=== PATIENT | male | born 1950 | race Caucasian/White ===

== ENCOUNTER 2025-03-14 14:42 | Emergency (ER) | payer MEDICARE, SELFPAY ==
--- OUTSIDE RECORDS SUMMARY | 2025-03-14 14:46 | XMS_ITS | Encounter Summary ---
Author Organization [facility] Address [address] [place] [address] Care Team Providers Care Detective And Intelligence Analyst Name Role Phone Margareth Hernández MD Primary Care Provider Augusta Donaldson AUTOMOBILE ENGINE ASSEMBLER Unavailable Unavaila ble Jason Moon DO Unavailable Encounter Details Date Type Department Care Team (Late st Contact Info) Description 09/13/[address] [phone] Margareth Hernández MD [facility] [address] [place] [address] Social History Tobacco Use Types Packs/Day Years Used Date Smoking Tobacco: Every Day Cigarettes Smokeless Tobacco: Never Alcohol Use Standard Drinks/Week Comments No 0 (1 standard drink = 0.6 oz pur e alcohol) Sex and Gender Information Value Date Recorded Sex Assigned at Not on file Legal Sex Male 9:21 AM CDT Gender Identity Not on file Sexual Orientation Not on file documented as of this encounter Plan of Treatment Not on file documented as of this encounter Visit Diagnoses Not on filedocumented in this encounter Care Teams Detective And Intelligence Analyst Relationship Specialty Start Date End Date Margareth Hernández MD [facility] [address] [place] [address] PCP - General Otolaryngology 09/13/18 Augusta Donaldson, DEE AUTOMOBILE ENGINE ASSEMBLER 09/03/24 [place] [address] Home Infusion Following Provider 09/03/24 documented as of this encounter
--- OUTSIDE RECORDS SUMMARY | 2025-03-14 14:46 | XMS_ITS ---
Author Organization [facility] Address [address] [place] [address] Care Team Providers Care Long Term Care Phlebotomist Name Role Phone Margareth Hernández MD Primary Care Provider [phone] Augusta Donaldson LPN Unavailable Unavaila ble Jason Moon DO Unavailable Enteral Status:Enrolled (Active) Start date:07/22/2024 Enrollment date:07/23/2024 Linked medications:Nutritional Supplements (Active) Related program episode:Home Infusion (Active) Case Team Name Relationship Phone Augusta Donaldson LPN HAND ALTERATIONS SEAMSTRESS Continued Care and Services Coordination
--- OUTSIDE RECORDS SUMMARY | 2025-03-14 14:46 | XMS_ITS ---
Author Organization [facility] Address [address] [place] [address] Care Team Providers Care Gps Navigation Installer Name Role Phone Margareth Hernández MD Primary Care Provider Augusta Donaldson LPN Unavailable Unavaila ble Jason Moon DO Unavailable Home Infusion Status:Enrolled (Active) Start date:07/22/2024 Enrollment date:07/23/2024 Related service episodes:Enteral (Active) Case Team Name Relationship Phone Augusta Donaldson LPN BLOOD DONOR RECRUITER Continued Care and Services Coordination
--- OUTSIDE RECORDS SUMMARY | 2025-03-14 14:46 | XMS_ITS | Clinical Summary ---
Author Organization [facility] Address [address] [place] [address] Care Team Providers Care Cdl Instructor Name Role Phone Margareth Hernández MD Primary Care Provider Augusta Donaldson GOVERNMENT RELATIONS MANAGER Unavailable Unavaila ble Jason Moon DO Unavailable Allergies No known active allergies Medications HYDROcodone-acet aminophen 7.5-325 MG/15ML solutionIndicati ons:Cancer of base of tongue (H) Take 10 mLs by mouth every 4 hours as needed for pain (moderate to severe) 200 mL 09/02/2018 Active multivitamin, therapeutic with minerals (THERA-VIT-M) TABS tablet Take 1 tablet by mouth daily Active Berwyn-3 Fatty Acids (FISH OIL) 1200 MG capsule Take 1,200 mg by mouth daily Active omeprazole (PRILOSEC OTC) 20 MG EC tablet Take 20 mg by mouth daily Active loratadine (CLARITIN) 10 MG tablet Take 10 mg by mouth daily Active guaiFENesin (ROBITUSSIN) 20 mg/mL SOLN solution Take 10 mLs by mouth every 4 hours as needed for cough Active Boost VHC Very VanillaIndicatio ns:Oral hemorrhage Take 237 mLs by mouth 4 times daily. Infuse Orally - 4 cartons per day. 16196 mL 11 02/16/2025 9:25 AM CDT 10/18/2024 10/18/20 25 Active Active Problems Problem Noted Date Diagnosed Date Oral hemorrhage 09/13/2018 Encounters Date Type Department Care Team Description 03/14/2025 Home Infusion [facility] [address] [place] [phone] Augusta Donaldson LPN 12/29/2024 Home Infusion [facility] [address] [place] [address] [phone] Augusta Donaldson LPN from Last 3 Months Social History Tobacco Use Types Packs/Day Years Used Date Smoking Tobacco: Every Day Cigarettes Smokeless Tobacco: Never Alcohol Use Standard Drinks/Week Comments No 0 (1 standard drink = 0.6 oz pur e alcohol) Adolescent Education Answer Date Record ed Getting School Help Needed Not on file 08/08 Sex and Gender Information Value Date Recorded Sex Assigned at Not on file Legal Sex Male 9:21 AM CDT Gender Identity Not on file Sexual Orientation Not on file Last Filed Vital Signs Vital Sign Reading Time Taken Comments Blood Pressure 127/76 09/09/2019 10:26 AM CDT Pulse 69 09/09/2019 10:26 AM CDT Temperature 36.8 C (98.2 F) 09/09/2019 10:26 AM CDT Respiratory Rate 16 09/09/2019 10:26 AM CDT Oxygen Saturation 97% 09/09/2019 10:26 AM CDT Inhaled Oxygen Concentration - - Weight 67.3 kg (148 lb 4.8 oz) 09/09/2019 9:21 A M CDT Height 175.3 cm (5' 9) 09/09/2019 9:21 AM CDT Body Mass Index 21.9 09/09/2019 9:21 AM CDT Plan of Treatment Not on file Insurance BCBS OUT OF STATE [employer] MEDICARE ADVANTAGE MEDICARE Advance Directives For more information, please contact: [phone] * Full Code (Latest Code Status on File) Date Activated Date Inactivated Comments 09/14/2018 7:46 AM 09/09/2019 9:00 AM Question Answer Comments Code status determined by: Discussion with kristina nt/legal decision maker * Full Code Date Activated Date Inactivated Comments 09/13/2018 3:21 PM 09/14/2018 7:46 AM Question Answer Comments Code status determined by: Discussion with kristina nt/legal decision maker Care Teams Cdl Instructor Relationship Specialty Start Date End Date Margareth Hernández MD [facility] [place] [address] [place] [address] PCP - General Otolaryngology 09/13/18 Augusta Donaldson, GOVERNMENT RELATIONS MANAGER GOVERNMENT RELATIONS MANAGER 09/03/24 Jason Moon DO [facility] [place] [address] Home Infusion Following Provider 09/03/24
--- OUTSIDE RECORDS SUMMARY | 2025-03-14 14:46 | XMS_ITS | Encounter Summary ---
Author Organization [facility] Address [address] [place] [address] Care Team Providers Care Transferrer Name Role Phone Margareth Hernández MD Primary Care Provider Augusta Donaldson NEUROSURGICAL PHYSICIAN ASSISTANT Unavailable Unavaila ble Jason Moon DO Unavailable Reason for Visit * Reason Onset Date Comments Appointment 08/30/2019 called, left mes sandra for patient to call [phone] to schedule an appt with IR @ [facility] Encounter Details Date Type Department Care Team (Late st Contact Info) Description 08/30/2019 Telephone [facility] [address] [place] [address] Liyah Ayala, RN Appointment (called, left message for patient to call [phone] to schedule an appt with IR @ [facility]) Social History Tobacco Use Types Packs/Day Years [...] on filedocumented in this encounter Care Teams Transferrer Relationship Specialty Start Date End Date Margareth Hernández MD [facility] [place] [address] [place] [address] PCP - General Otolaryngology 09/13/18 Augusta Donaldson, NEUROSURGICAL PHYSICIAN ASSISTANT NEUROSURGICAL PHYSICIAN ASSISTANT 09/03/24 Jason Moon DO [place] [address] Home Infusion Following Provider 09/03/24 documented as of this encounter
--- OUTSIDE RECORDS SUMMARY | 2025-03-14 14:46 | XMS_ITS | Encounter Summary ---
Author Organization [facility] Address [address] [place] [address]. [place] [address] Care Team Providers Care Grill Prep Cook Name Role Phone Margareth Hernández MD Primary Care Provider Augusta Donaldson COOK NIGHT Unavailable Unavaila Jason Heath DO Unavailable Encounter Details Date Type Department Care Team (Late st Contact Info) Description 03/14/2025 Home Infusion [facility] [address] [place] [phone] Augusta Donaldson, COOK NIGHT Social History Tobacco Use Types Packs/Day Years [...] on filedocumented in this encounter Care Teams Grill Prep Cook Relationship Specialty Start Date End Date Margareth Hernández MD [facility] [place] [address] [place] [address] [place] [address] PCP - General Otolaryngology 09/13/18 Augusta Donaldson, COOK NIGHT COOK NIGHT 09/03/24 Jason Moon DO [address] [place] [address] Home Infusion Following Provider 09/03/24 documented as of this encounter
--- OUTSIDE RECORDS SUMMARY | 2025-03-14 14:46 | XMS_ITS | Clinical Summary ---
Author Organization [facility] Address [address] [place] [address] Care Team Providers Care Home Health Administrator Name Role Phone Kathi Moonkajal MAC Primary Care Provider [phone] Allergies No known active allergies Medications Multivits,Ca,Minera ls-Iron-FA (THERA M PLUS, FERROUS FUMARAT,) 9 mg iron-400 mcg tablet Take 1 Tab by mouth. Active omeprazole (PRILOSEC) 20 mg Delayed-Release capsule Take 1 capsule by mouth once daily before a meal. 0 9 Active levocetirizine (Xyzal) 5 mg tab tablet Take 1 Tablet (5 mg) by mouth once daily in the evening. 0 2 Active atorvastatin (LIPITOR) 20 mg tabletIndications:H yperlipidemia, unspecified hyperlipidemia type Take 1 Tablet (20 mg) by mouth at bedtime. 90 Tablet 3 4 Active guaiFENesin 100 mg/5 mL liquidIndications:O ropharyngeal cancer (HC) Take 5 mL (100 mg) by mouth once daily in the morning. 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 Had chemotherapy and radiation with success. Encounters Date Type Department Care Team Description 03/14/2025 Telephone [facility] [address] [place] [address] Jason Moon, Concerns from Last 3 Months Immunizations Immunization Administration Dates Next Due COVID-19 VACCINE SPIKEVAX (M ODERNA 50MCG/0.5ML) 12YO+ PFS 08/11/2024 COVID-19 vaccine (Moderna 10 0mcg/0.5mL) PF, MDV 10/29/2021,04/10/2021,03/13/2021 Influenza, High-dose Quadriv alent Inactivated 08/05/2023,09/22/2020 Influenza, IIV3 (Age 6-35 mos) 08/22/2016 Influenza, IIV3 (Age >=3 years) 08/14/2017 Influenza, IIV4 (=>6mos) MDV 09/22/2019,08/26/20 18 Influenza, Inactivated AIIV4 (Age 65+ Years) Preserv Free 09/10/2022,07/20/2021 Influenza, Inactivated IIV3 (Age 65+ Years) Preserv Free 08/11/2024 Pneumococcal Conj 20-valent (Prevnar 20) 023 RSV, Bivalent Vaccine Recons tituted (Abrysvo 120MCG/0.5mL) 10/23/2023 Tdap 09/10/2022,04/25/2008 Family History Medical History Relation Name Comments Atrial fibrillation Brother Cancer Maternal Uncle rectum; was m ore on the surface like a skin cancer around the rectal area Atrial fibrillation Sister Cancer-colon No Family History Relation Name Status Comments Brother Maternal Uncle Sister Social History Tobacco Use Types Packs/Day Years Used Date Smoking Tobacco: Every Day Cigarettes 0.5 66.6 Started: 08/08/1959 Smokeless Tobacco: Never Tobacco Cessation:Ready to Q uit: No; Counseling Given: Yes Alcohol Use Standard Drinks/Week Comments Not Currently 0 (1 standard drink = 0.6 oz pur e alcohol) PHQ-2 Answer Date Recorded PHQ-2 TOTAL SCORE 0 08/11/2024 Social Connections Answer Date Recorded Do you often feel lonely or isolated from those around you? 0 08/11/2024 Financial Resource Strain Answer Date R ecorded Difficulty of Paying Living Expenses 3 08/11/2024 Difficulty of Paying Living Expenses Not on file 08/11/2024 Food Insecurity Answer Date Recorded Do you worry your food will run out before you are able to buy more? 1 08/11/2024 Transportation Needs Answer Date Record ed Does lack of transportation keep you from medica l appointments? 1 08/11/2024 Does lack of transportation keep you from work, meetings or getting things that you need? 1 08/11/2024 Housing Stability Answer Date Recorded What is your housing situation today? 1 08/11/2024 Utilities Answer Date Recorded Do you have trouble paying f or utilities (for example, heat, electricity, water, phone)? 1 08/11/2024 Sex and Gender Information Value Date Recorded Sex Assigned at Not on file Legal Sex Male 8:01 PM CDT Gender Identity Not on file Sexual Orientation Not on file Obstetrics History Last Filed Vital Signs Vital Sign Reading Time Taken Comments Blood Pressure 126/78 08/11/2024 10:37 AM CDT re check Pulse 77 08/11/2024 10:37 AM CDT Temperature 37.2 C (98.9 F) 07/13/2021 12:53 PM CDT Respiratory Rate 16 06/22/2019 10:24 AM CDT Oxygen Saturation 96% 08/11/2024 9:50 AM CDT Inhaled Oxygen Concentration - - Weight 73.1 kg (161 lb 1.6 oz) 08/11/2024 9:50 A M CDT Height 172.7 cm (5' 8) 08/11/2024 9:50 AM CDT Body Mass Index 24.5 08/11/2024 9:50 AM CDT Plan of Treatment Upcoming Encounters Date Type Department Care Team (Late st Contact Info) Description 03/21/2025 12:25 PM CDT Office Visit [facility] [address] [place] [address] Jason Moon DO [address] [place] [address] Health Maintenance Due Date Last Done Comments Zoster (shingles) series for age 50+ (1 of 2) 1999 COVID-19 vaccine series (2023- season) 2025 08/11/2024, 09/10/2022, 10/29/2021, Additional history exists Low Dose CT (for lung CA) ag e 50-80 06/21/2025 06/21/2024 BMI (ht and wt on same day) for age 18+ 08/11/2025 08/11/2024, 08/08/2023, 07/10/2022, Additional history exists Depression screening for age 12+ 08/12/2025 08/12/2024, 08/11/2024, 08/08/2023, Additional history exists Medicare Wellness for age 65+ 08/12/2025, 08/08/2023, 07/10/2022 Fecal testing sDNA-FIT (Witten guard) for age 45-75 03/11/2026 03/11/2023, 08/08/2021, 08/07/2021 Lipids for age 45-75 08/11/2029 08/11/2024, 08/08/2023, 07/10/2022, Additional history exists Tetanus booster 09/10/2032 09/10/2022, 04/25/2008 Hepatitis C screening for ag e 18-79 Completed 07/20/2021 Tdap Completed 09/10/2022, 04/25/2008 Pneumococcal series for age 50+ Completed RSV vaccine for adults or Completed 10/23/2023 Influenza Vaccine Completed 08/11/2024, , 07/20/2021, Additional history exists Procedures Procedure Name Priority Date/Time Associated Diagnosis Comments LIPID PANEL W REFLEX MEASURED LDL Routine 08/11/2024 10:56 AM CDT Hyperlipidemia, unspecified hyperlipidemia type CT CHEST SCREENING LOW DOSE WO CONTRAST Routine 06/21/2024 9:09 AM CDT Tobacco dependence Personal history of nicotine dependence SDNA-FIT EXTERNAL (COLOGUARD) Routine 03/11/2023 11:50 AM CDT Screening for colon cancer ANTI HCV Routine 07/20/2021 8:26 AM CDT Need for hepatitis C screening test from Last 3 Months or Most Recently Relevant to Health Maintenance Results * LIPID PANEL W REFLEX MEASURED LDL (08/11/2024 10:56 AM CDT) CHOLESTEROL, TOTAL 127 <200 mg/dL [facility] HDL CHOLESTEROL 48 > OR = 40 mg/dL [facility] TRIGLYCERIDES 56 <150 mg/dL [facility] LDL-CHOLESTEROL 65 mg/dL (calc) [facility] Comment: Reference range: <100 Desirable range <100 mg/dL for primary prevention; <70 mg/dL for patients with CHD or diabetic patients with > or = 2 CHD risk factors. LDL-C is now calculated using the Marv-Zaheer calculation, which is a validated novel method providing better accuracy than the Friedewald equation in the estimation of LDL-C. Marv SS et al. LUISITO. 2013;310(19): 9406-6584 (http://education.Appconomy/faq/AUW279) CHOL/HDLC RATIO 2.6 <5.0 (calc) [facility] NON HDL CHOLESTEROL 79 <130 mg/dL (calc) [facility] Comment: For patients with diabetes plus 1 major ASCVD risk factor, treating to a non-HDL-C goal of <100 mg/dL (LDL-C of <70 mg/dL) is considered a therapeutic option. Blood BLOOD SPECIMEN / Unknown 08/11/2024 10:56 AM CDT 08/11/2024 10:56 AM CDT us Jason Moon DO CHEMISTRY Final Result [facility] [address] [place] [address], [facility] [address] [place] [address] * CT CHEST SCREENING LOW DOSE WO CONTRAST (06/21/2024 9:09 AM CDT) Anatomical Region Laterality Modality Computed Tomogra phy Addenda Addendum by Mike Newton MD on 06/27/2024 10:10 PM CDT For Patients: As a result of the Cures Act, medical imaging exams and procedure reports are released immediately into your electronic medical record. You may view this report before your referring provider. If you have questions, please contact your health care provider. ADDENDUM ADDENDUM ADDENDUM Addendum: Based on a secondary overread leveraging technology deployed at [facility], a previously undocumented finding has been confirmed. There is a 4-5 mm pulmonary nodule in the left upper lobe of the lung, image 63 series 3 and image 77 series 7. A follow-up screening noncontrast chest CT is recommended in 12 months. Dictated by: Mike Newton MD @06/24/2024 1:28:05 PM / CRL:clarisa Impressions 06/22/2024 8:55 AM CDT Negative for lung cancer screening purposes. 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 RADIOLOGIST RECOMMENDATION: Continue annual screening with low-dose CT chest in 12 months. Dictated by: Mike Newton MD @06/21/2024 2:55:13 PM CRL:fred Please note that all CT scans at this facility use dose modulation, iterative reconstruction and/or weight-based dosing when appropriate to reduce radiation dose to as low as reasonably achievable. Narrative 06/22/2024 8:55 AM CDT For Patients: As a result of the Cures Act, medical imaging exams and procedure reports are released immediately into your electronic medical record. You may view this report before your referring provider. If you have questions, please contact your health care provider. CT CHEST SCREENING LOW-DOSE WITHOUT CONTRAST, 06/21/2024 INDICATION: Lung cancer screening. History of smoking. Tobacco dependence. High-risk patient with greater than 51-bvtc-yrpt smoking history. TECHNIQUE: Low-dose lung cancer screening noncontrast CT chest. Dose reduction techniques were used. COMPARISON: None. FINDINGS: NODULES: None. LUNGS AND PLEURA: Mild emphysematous-type changes. Minor fairly symmetric biapical fibrosis/pleural thickening. 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 Normal-caliber thoracic aorta. CORONARY ARTERY CALCIFICATION: Present. LIMITED UPPER ABDOMEN: Normal. MUSCULOSKELETAL: Degenerative disc disease identified within the mid to lower lumbar spine on the lateral travel counselor image). us Jason Moon DO CT Edited Result - Final * SDNA-FIT EXTERNAL (COLOGUARD) (03/11/2023 11:50 AM CDT) NONINV COLON CA DNA+OCC BLD SCRN STL-IMP Negative Negative 03/20/2023 2:58 AM CDT [facility] (CLIA #:[id number]) Comment: NEGATIVE TEST RESULT. A negative Cologuard result indicates a low likelihood that a colorectal cancer (CRC) or advanced adenoma (adenomatous polyps with more advanced pre-malignant features) is present. The chance that a person with a negative Cologuard test has a colorectal cancer is less than 1 in 1500 (negative predictive value >99.9%) or has an advanced adenoma is less than 5.3% (negative predictive value 94.7%). These data are based on a prospective cross-sectional study of 10,000 individuals at average risk for colorectal cancer who were screened with both Cologuard and colonoscopy. (Bev Gutierrez et al, N Engl J Med 2014;370(14):6630-6635) The normal value (reference range) for this assay is negative. COLOGUARD RE-SCREENING RECOMMENDATION: Periodic colorectal cancer screening is an important part of preventive healthcare for asymptomatic individuals at average risk for colorectal cancer. Following a negative Cologuard result, the [employer] Society and U.S. Multi-Society Task Force screening guidelines recommend a Cologuard re-screening interval of 3 years. References: [employer] Society Guideline for Colorectal Cancer Screening: https://www.cancer.org/cancer/dymxm-ltppss-iczkls/qlnkaerjc-zgzaxhuqt-rnqcbox/ac s-rec ommendations.html.; Cem DK, Geraldo CR, Jon SimsK, Colorectal Cancer Screening: Recommendations for Physicians and Patients from the U.S. Multi-Society Task Force on Colorectal Cancer Screening , Am J Gastroenterology 2017; 112:2515-6487. TEST DESCRIPTION: Composite algorithmic analysis of stool DNA-biomarkers with hemoglobin immunoassay. Quantitative values of individual biomarkers are not reportable and are not associated with individual biomarker result reference ranges. Cologuard is intended for colorectal cancer screening of adults of either sex, 45 years or older, who are at average-risk for colorectal cancer (CRC). Cologuard has been approved for use by the U.S. FDA. The performance of Cologuard was established in a cross sectional study of average-risk adults aged 50-84. Cologuard performance in patients ages 45 to 49 years was estimated by sub-group analysis of near-age groups. Colonoscopies performed for a positive result may find as the most clinically significant lesion: colorectal cancer [4.0%], advanced adenoma (including sessile serrated polyps greater than or equal to 1cm diameter) [20%] or non- advanced adenoma [31%]; or no colorectal neoplasia [45%]. These estimates are derived from a prospective cross-sectional screening study of 10,000 individuals at average risk for colorectal cancer who were screened with both Cologuard and colonoscopy. (Bev Akins al, N Engl J Med 2014;370(14):9594-5101.) Cologuard may produce a false negative or false positive result (no colorectal cancer or precancerous polyp present at colonoscopy follow up). A negative Cologuard test result does not guarantee the absence of CRC or advanced adenoma (pre-cancer). The current Cologuard screening interval is every 3 years. ([employer] [employer] Society and U.S. Multi-Society Task Force). Cologuard performance data in a 10,000 patient pivotal study using colonoscopy as the reference method can be accessed at the following location: www.[employer].Aunalytics/results. Additional description of the Cologuard test process, warnings and precautions can be found at www.Izoobleoguard.com. Stool specimen (specimen) (Rectum) 03/11/2023 11:50 AM CDT 03/12/2023 1:54 PM CDT us Meagan JENSEN URINE Final Resu lt [facility] (CLIA #:[id number]) [place] [address], * ANTI HCV (07/20/2021 8:26 AM CDT) HEPATITIS C ANTIBODY Non-React girish Non-React girish 07/20/2021 3:50 PM CDT [facility] Comment:Antibodies to HCV no t detected; does not exclude the possibility of exposure to HCV. Blood BLOOD SPECIMEN / Unknown Venipuncture / Unknown 07/20/2021 8:26 AM CDT 07/20/2021 8:28 AM CDT us Meagan JENSEN SEND OUTS Final Resu lt [facility] [address] [place] [address], from Last 3 Months or Most Recently Relevant to Health Maintenance Insurance [facility] MR Care Teams Home Health Administrator Relationship Specialty Start Date End Date Jason Moon DO [address] [place] [id number] PCP - General Family Practice 08/08/23
--- OUTSIDE RECORDS SUMMARY | 2025-03-14 14:46 | XMS_ITS | Encounter Summary ---
Author Organization [facility] Address [address] [place] [address]. [place] [address] Care Team Providers Care Bridge Maintainer Name Role Phone Margareth Hernández MD Primary Care Provider [phone] Augusta Donaldson POTATO CHIP COOKER MACHINE Unavailable Unavaila Jason Heath DO Unavailable Encounter Details Date Type Department Care Team (Late st Contact Info) Description 12/29/2024 Home Infusion [facility] [address] [place] [phone] Augusta Donaldson, POTATO CHIP COOKER MACHINE Social History Tobacco Use Types Packs/Day Years [...] on filedocumented in this encounter Care Teams Bridge Maintainer Relationship Specialty Start Date End Date Margareth Hernández MD [facility] [address] [address] [place] [address] PCP - General Otolaryngology 09/13/18 Augusta Donaldson, POTATO CHIP COOKER MACHINE POTATO CHIP COOKER MACHINE 09/03/24 Jason Moon DO [address] [place] [address] Home Infusion Following Provider 09/03/24 documented as of this encounter
[2025-03-14 14:50] VITALS: BP 121/68; PULSE 102; RESP 18; TEMP 37.1; O2SAT 94; BMI 23.6
--- NOTE | 2025-03-14 15:16 | CRLHL7_ITS ---
For Patients: As a result of the Century Cures Act, medical imaging exams and procedure reports are released immediately into your electronic medical record. You may view this report before your referring provider. If you have questions, please contact your health care provider. Indication: Constipation and hernia Technique: Volumetric multidetector CT images of the abdomen and pelvis were obtained after the administration of intravenous contrast. 76 cc Isovue 370 low osmolar intravenous contrast Comparison: None available. Findings: The lung bases are clear. The liver is mildly enlarged with minimal hypodensities somewhat too small to characterize. The portal vein is patent. The gallbladder is unremarkable without evidence of radiopaque calculus. There is no significant common biliary ductal dilatation or abrupt cut off. The spleen is normal in enhancement and size. The stomach and duodenum are grossly unremarkable. The pancreas is normal in enhancement without significant atrophy. The adrenal glands are unremarkable. Cystic changes of the kidneys are appreciated with otherwise preserved corticomedullary differentiation. There is moderate stool seen throughout the colon in the rectum with distal colonic diverticulosis. No evidence of obvious focal inflammatory changes. The appendix is unremarkable. Incidental note is made of a small nodule within the left retroperitoneum just lateral to the left psoas muscle measuring 7.5 millimeters. Otherwise, no obvious pathologic lymph nodes are appreciated within the mesentery, retroperitoneum or epigastrium. The aorta is nonaneurysmal. There is no significant atherosclerotic disease appreciated. There is moderate prostatic hypertrophy. There is no free fluid or free air. The anterior abdominal wall is intact without significant hernias. Bilateral fat containing inguinal hernias are appreciated. Minimal encroachment of the left inguinal canal by bowel without direct herniation. The lumbar vertebral body heights are grossly maintained with awco-xz-fwqmftuv degenerative disc disease with disc height loss and marginal osteophyte formation. There is moderate facet arthrosis. Impression: 1. Moderate to severe stool seen throughout the colon commensurate with constipation changes. Distal colonic diverticulosis without obvious inflammatory change. 2. Fat containing bilateral inguinal hernias with minimal encroachment by loops of small bowel but without direct herniation. Otherwise no obvious hernia is appreciated. Please note that all CT scans at this facility use dose modulation, iterative reconstruction, and/or weight-based dosing when appropriate to reduce radiation dose to as low as reasonably achievable. Dictated by Omer Hernández MD @ 03/14/2025 4:40:30 PM (Electronically Signed)
--- NOTE | 2025-03-14 15:17 | ED.WEAKNESS ---
HPI - Weakness General Chief complaint: Weakness Stated complaint: weakness in both legs Time Seen by Provider: 03/14/25 14:58 History of Present Illness HPI Narrative: This 74-year-old male comes in reporting generalized weakness over the past week or so. He states that he feels better when getting up in the morning but as the day progresses he has more difficulty with ambulating. He is able to get up and ambulate and now has been using a walker for assistance. He does not report any injury event but did have some strenuous activity the week before these symptoms began. He was cleaning out his garage and moving boxes of books and may have overused his lower extremities in this process. He does not describe any pain. 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 Since then he is only taking liquids for food and is using boost 3 or 4 times a day with good results. He states there is no change in this but at times he has some diarrhea and other times has some constipation. He reports currently having constipation symptoms and wonders if there is some hernia or some problem in his right lower quadrant contributing to this. He states that his about 5 years ago from cancer. Related Data Home Medications ?Medication ?Instructions ?Recorded ?Confirmed food supplemt, lactose-reduced ea PO 11/11/23 11/11/23 0.04 gram-1 kcal/mL oral liquid (Boost) Allergies Allergy/AdvReac Type Severity Reaction Status Date / Time No Known Drug Allergies Allergy Verified 03/14/25 15:53 Review of Systems Status of ROS: Reports: 10 or more systems reviewed and unremarkable except as noted in History and below Narrative: Constitutional: No fevers, no weight gain or loss. Eyes: No discharge. No vision changes. HENT: No congestion, no sore throat, no ear pain. Cardiovascular: No chest pain, no palpitations. Respiratory: No shortness of breath, no wheezes, no cough. Gastrointestinal: No abdominal pain, no vomiting, no diarrhea. Constipation symptoms as described above. Genitourinary: No dysuria, no hematuria. Musculoskeletal: Normal range of motion. Skin: No rashes, no pruritis. Neurological: No dizziness, sensory change, speech change. He reports some weakness in his legs that seems to increase as the day progresses. Endo/Heme/Allergies: No bruising or bleeding. No polydipsia. Pysch: no suicidality, no anxiety, no insomnia. All other systems reviewed and are negative. [facility] Social History Smoking Status: Current every day smoker What tobacco products do you use: cigarettes Exam Narrative: Exam Narrative: Constitutional: Well-developed, well-nourished, no acute distress. HEENT: Normocephalic, atraumatic. Neck: Normal range of motion. Nontender. Supple. Heart: Regular. No murmurs. Normal rate. Intact distal pulses. Lungs: Clear to auscultation. No chest discomfort. No wheezes, rhonchi, or rales. Abdomen: Normal bowel sounds. Nontender. No rebound tenderness. Genitalia: Deferred. Back: No midline tenderness. Normal range of motion. Extremities: Normal range of motion. No injury. Skin: Intact. No rash. Warm. No erythema or pallor. Neurologic: No altered sensation. No weakness. Alert and oriented. No facial asymmetry. Tongue is midline. Iqemas-of-jdgg is normal. No pronator drift. Advance Scout strength is equal bilaterally. Able to raise each leg from the bed. Psychiatric: No suicidality. No anxiety or depression. No insomnia. Nursing notes and vitals signs are reviewed. Const: Vital Signs, click to edit/add: Vital Signs - 24 hr 03/14/25 14:50 03/14/25 16:44 Temperature 98.7 F Pulse Rate [Pulse Oximeter] 102 H 77 Respiratory Rate 18 16 Blood Pressure [Ri ght Upper Arm] 121/68 128/67 Pulse Oximetry 94 95 Oxygen Delivery Me thod Room Air Room Air Course Vital Signs Vital signs: Initial Vital Signs Temperature 98.7 F 03/14/25 14:50 Temperature Source Temporal Artery Scan 03/14/25 14:50 Pulse Rate 102 H 03/14/25 14:50 Respiratory Rate 18 03/14/25 14:50 Blood Pressure 121/68 03/14/25 14:50 Blood Pressure Mean 85 03/14/25 14:50 Blood Pressure Position Sitting 03/14/25 14:50 Pulse Oximetry 94 03/14/25 14:50 Oxygen Delivery Method Room Air 03/14/25 14:50 Vital Signs Temperature 98.7 F 03/14/25 14:50 Pulse Rate 102 H 03/14/25 14:50 Respiratory Rate 18 03/14/25 14:50 Blood Pressure 121/68 03/14/25 14:50 Pulse Oximetry 94 03/14/25 14:50 Oxygen Delivery Method Room Air 03/14/25 14:50 Temperature 98.7 F 03/14/25 14:50 Pulse Rate 77 03/14/25 16:44 Respiratory Rate 16 03/14/25 16:44 Blood Pressure 128/67 03/14/25 16:44 Pulse Oximetry 95 03/14/25 16:44 Oxygen Delivery Method Room Air 03/14/25 16:44 MDM - Weakness MDM Narrative Medical decision making narrative: This patient comes in reporting constipation and some generalized weakness. He has able to get up and ambulate. He did do some exertional things prior to this that he is likely recovering from. I did obtain CT scan with IV contrast and lab results and CT imaging returned with reassuring findings. CT scan does show evidence of bilateral inguinal hernias that are really not consequential. He does have moderate to severe constipation. I did relay the various strategies for attending to constipation in the patient states that he will return home and use these more aggressively to get something happening. Lab Data Labs: Lab Results 03/14/25 03/14/25 Range/Units 15:30 15:32 WBC 7.69 (4.50-11.00) K/uL RBC 5.82 (4.30-5.90) m/uL Hgb 17.6 H (13.5-17.5) gm/dL Hct 51.5 (37.0-53.0) % MCV 89 (80-100) fL MCH 30 (26-34) pg MCHC 34 (32-36) gm/dL RDW Coeff of Jason 13.5 (11.5-15.5) % Plt Count 244 (140-440) K/uL Neut % (Auto) 72.8 H (42.0-72.0) % Lymph % (Auto) 12.1 L (20-44) % [place] % (Auto) 13.0 H (0.0-11.0) % Eos % (Auto) 0.7 (0.0-7.0) % Baso % (Auto) 0.4 (0.0-3.0) % Neut # (Auto) 5.60 (1.7-7.0) K/uL Lymph # (Auto) 0.90 (0.90-2.90) K/uL [place] # (Auto) 1.00 H (0.00-0.90) K/UL Eos # (Auto) 0.05 (0.00-0.50) K/uL Baso # (Auto) 0.03 (0.00-0.30) K/uL Abs Immat Gran (auto) 0.08 (0.00-0.30) K/uL Imm/Tot Granulo (auto) 1.0 % Sodium 142 (135-149) mmol/L Potassium 3.5 L (3.6-5.1) mmol/L Chloride 103 (96-114) mmol/L Carbon Dioxide 28 (20-32) mmol/L Anion Gap 11 (7-15) mEq/L BUN 28 (7-30) mg/dL Creatinine 1.1 (0.5-1.5) mg/dL Estimated Creat Clear 56.14 Estimated GFR 70 ml/min Glucose 109 (60-115) mg/dL Calcium 9.9 (8.4-10.6) mg/dL POC Creatinine 1.2 (0.6-1.3) mg/dl Discharge Plan Discharge Clinical Impression: Constipation Patient Disposition: Home, Self-Care Condition: Stable Additional Instructions: Use mddv-ygb-dsjxfit medicines to treat constipation as needed and directed. Increase activity as tolerated. Follow up with MD as scheduled or return if worsening. Prescriptions: No Action Boost 0.04 gram- 1 kcal/mL liquid PO Follow Up/Referrals: Provider,Not a Local [Non-Staff] - Stand Alone Forms: Online [facility] Info Instructions
--- OUTSIDE RECORDS SUMMARY | 2025-03-14 15:27 | XMS_ITS | Encounter Summary ---
Author Organization [facility] Address [address] [place] [address] Care Team Providers Care Log Handling Equipment Operator Name Role Phone Magrareth Hernández MD Primary Care Provider [phone] Augusta Donaldson SCALE SHOOTER Unavailable Unavaila ble Jason Moon DO Unavailable Encounter Details Date Type Department Care Team (Late st Contact Info) Description 09/13/[address] [phone] Margareth Hernández MD [facility] [address] [place] [place] [address] Social History Tobacco Use Types Packs/Day Years [...] on filedocumented in this encounter Care Teams Log Handling Equipment Operator Relationship Specialty Start Date End Date Margareth Hernández MD [facility] [address] [place] [address] PCP - General Otolaryngology 09/13/18 Augusta Donaldson, DEE SCALE SHOOTER 09/03/24 Jason [place] [address] Home Infusion Following Provider 09/03/24 documented as of this encounter
--- OUTSIDE RECORDS SUMMARY | 2025-03-14 15:27 | XMS_ITS | Clinical Summary ---
Author Organization [facility] Address [address] [place] [address] Care Team Providers Care Conference Concierge Name Role Phone Margareth Hernández MD Primary Care Provider Augusta Donaldson SPECIAL NEEDS BABYSITTER Unavailable Unavaila ble Jason Moon DO Unavailable Allergies No known active allergies Medications HYDROcodone-acet aminophen 7.5-325 MG/15ML solutionIndicati ons:Cancer of base of tongue (H) Take 10 mLs by mouth every 4 hours as needed for pain (moderate to severe) 200 mL 09/02/2018 Active multivitamin, therapeutic with minerals (THERA-VIT-M) TABS tablet Take 1 tablet by mouth daily Active [place]-3 Fatty Acids (FISH OIL) 1200 MG capsule [...] Infuse Orally - 4 cartons per day. [address] mL 11 02/16/2025 9:25 AM CDT 10/18/2024 10/18/20 25 Active Active Problems Problem Noted Date Diagnosed Date Oral hemorrhage 09/13/2018 Encounters Date Type Department Care Team Description 03/14/2025 Home Infusion [facility] [address] [place] [phone] Augusta Donaldson LPN 12/29/2024 Home Infusion [facility] [address] [place] [phone] Augusta Donaldson LPN from Last 3 Months [...] Advance Directives For more information, please contact: [phone] * Full Code (Latest Code Status on File) Date Activated Date Inactivated Comments 09/14/2018 7:46 AM 09/09/2019 9:00 AM Question Answer Comments Code status determined by: Discussion with kristina nt/legal decision maker * Full Code Date Activated Date Inactivated Comments 09/13/2018 3:21 PM 09/14/2018 7:46 AM Question Answer Comments Code status determined by: Discussion with kristina nt/legal decision maker Care Teams Conference Concierge Relationship Specialty Start Date End Date Margareth Hernández MD [facility] [place] [address] [place] [address] PCP - General Otolaryngology 09/13/18 Augusta Donaldson, SPECIAL NEEDS BABYSITTER SPECIAL NEEDS BABYSITTER 09/03/24 Jason Moon DO [facility] [place] [address] Home Infusion Following Provider 09/03/24
--- OUTSIDE RECORDS SUMMARY | 2025-03-14 15:27 | XMS_ITS ---
Author Organization [facility] Address [address] [place] [address] Care Team Providers Care Enterprise Systems Administrator Name Role Phone Margareth Hernández MD Primary Care Provider Augusta Donaldson LPN Unavailable Unavaila ble Jason Moon DO Unavailable Enteral Status:Enrolled (Active) Start date:07/22/2024 Enrollment date:07/23/2024 Linked medications:Nutritional Supplements (Active) Related program episode:Home Infusion (Active) Case Team Name Relationship Phone Augusta Donaldson LPN GUN STOCK MAKER Continued Care and Services Coordination
--- OUTSIDE RECORDS SUMMARY | 2025-03-14 15:27 | XMS_ITS ---
Author Organization [facility] Address [address] [place] [address] Care Team Providers Care Contribution Solicitor Name Role Phone Margareth Hernández MD Primary Care Provider Augusta Donaldson LPN Unavailable Unavaila ble Jason Moon DO Unavailable Home Infusion Status:Enrolled (Active) Start date:07/22/2024 Enrollment date:07/23/2024 Related service episodes:Enteral (Active) Case Team Name Relationship Phone Augusta Donaldson LPN NETWORKER Continued Care and Services Coordination
--- OUTSIDE RECORDS SUMMARY | 2025-03-14 15:28 | XMS_ITS | Encounter Summary ---
Author Organization [facility] Address [address] [place] [address]. [place] [address] Care Team Providers Care Field Crew Chief Name Role Phone Margareth Hernández MD Primary Care Provider Augusta Donaldson BOILERMAKER INDUSTRIAL BOILERS Unavailable Unavaila Jason Heath DO Unavailable Encounter Details Date Type Department Care Team (Late st Contact Info) Description 03/14/2025 Home Infusion [facility] [address] [place] [phone] Augusta Donaldson, BOILERMAKER INDUSTRIAL BOILERS Social History Tobacco Use Types Packs/Day Years [...] on filedocumented in this encounter Care Teams Field Crew Chief Relationship Specialty Start Date End Date Margareth Hernández MD [facility] [place] [address] [address] [place] [address] PCP - General Otolaryngology 09/13/18 Augusta Donaldson, BOILERMAKER INDUSTRIAL BOILERS BOILERMAKER INDUSTRIAL BOILERS 09/03/24 Jason Moon DO [address] [place] [address] Home Infusion Following Provider 09/03/24 documented as of this encounter
--- OUTSIDE RECORDS SUMMARY | 2025-03-14 15:28 | XMS_ITS | Encounter Summary ---
Author Organization [facility] Address [address] [place] [address]. [place] [address] Care Team Providers Care Chief Maintenance Supervisor Name Role Phone Margareth Hernández MD Primary Care Provider Augusta Donaldson POUNCING LATHE OPERATOR Unavailable Unavaila Jason Heath DO Unavailable Encounter Details Date Type Department Care Team (Late st Contact Info) Description 12/29/2024 Home Infusion [facility] [address] [place] [phone] Augusta Donaldson, POUNCING LATHE OPERATOR Social History Tobacco Use Types Packs/Day Years [...] on filedocumented in this encounter Care Teams Chief Maintenance Supervisor Relationship Specialty Start Date End Date Margareth Hernández MD [facility] [address] [address] [place] [address] PCP - General Otolaryngology 09/13/18 Augusta Donaldson, POUNCING LATHE OPERATOR POUNCING LATHE OPERATOR 09/03/24 Jason Moon DO [address] [place] [address] Home Infusion Following Provider 09/03/24 documented as of this encounter
--- OUTSIDE RECORDS SUMMARY | 2025-03-14 15:28 | XMS_ITS | Clinical Summary ---
Author Organization [facility] Address [address] [place] [address] Care Team Providers Care Inpatient Care Manager Rn Name Role Phone Kathi Moonkajal MAC Primary Care Provider [phone] Allergies No known active allergies Medications Multivits,Ca,Minera [...] Type Department Care Team Description 03/14[facility]20[facility] [address] [place] [address] Jason Moon, Concerns from Last 3 Months [...] Description 03/21/2025 12:25 PM CDT [facility] [address] [place] [address] Jason Moon DO [address] [place] [address] Health Maintenance Due Date Last Done Comments [...] 65+ 08/12/2025, 08/08/2023, 07/10/2022 Fecal testing sDNA-FIT ([place] guard) for age 45-75 03/11/2026 03/11/2023, 08/08/2021, [...] LDL-C. Marv SS et al. LUISITO. 2013;310(19): 7772-6028 (http://education.Photomedex/faq/WBT477) CHOL/HDLC RATIO 2.6 <5.0 (calc) [employer] Frank NON HDL CHOLESTEROL 79 <130 mg/dL (calc) [employer] Marie Comment: For patients with diabetes plus 1 major ASCVD risk factor, treating to a non-HDL-C goal of <100 mg/dL (LDL-C of <70 mg/dL) is considered a therapeutic option. Blood BLOOD SPECIMEN / Unknown 08/11/2024 10:56 AM CDT 08/11/2024 10:56 AM CDT us Jason Moon DO CHEMISTRY Final Result [facility] [address] [place] [address], [facility] [address] [place] [address] * CT CHEST SCREENING LOW DOSE WO [...] a secondary overread leveraging technology deployed at [facility], a previously undocumented finding has been [...] Tobacco dependence. High-risk patient with greater than 37-gmbu-vuza smoking history. TECHNIQUE: Low-dose lung cancer screening [...] to lower lumbar spine on the lateral crystallographer image). us Jason Moon DO CT Edited Result - Final * SDNA-FIT EXTERNAL (COLOGUARD) (03/11/2023 11:50 AM CDT) NONINV COLON CA DNA+OCC BLD SCRN STL-IMP Negative Negative 03/20/2023 2:58 AM CDT [facility] (CLIA #:[id number]) Comment: NEGATIVE TEST RESULT. A negative Cologuard [...] Gutierrez et al, N Engl J Med 2014;370(14):3870-6563) The normal value (reference range) for this assay is negative. COLOGUARD RE-SCREENING RECOMMENDATION: Periodic colorectal cancer screening is an important part of preventive healthcare for asymptomatic individuals at average risk for colorectal cancer. Following a negative Cologuard result, the [place] Cancer Society and U.S. Multi-Society Task Force screening guidelines recommend a Cologuard re-screening interval of 3 years. References: [place] Cancer Society Guideline for Colorectal Cancer Screening: https://www.cancer.org/cancer/zponl-vwciis-qdxxhp/szsxumlxq-qejziokeg-beuotyk/ac s-rec ommendations.html.; Cem DK, Geraldo CR, Jon SimsK, Colorectal Cancer Screening: Recommendations for Physicians and Patients from the U.S. Multi-Society Task Force on Colorectal Cancer Screening , Am J Gastroenterology 2017; 112:6398-8813. TEST DESCRIPTION: Composite algorithmic analysis of stool [...] (Bev Akins al, N Engl J Med 2014;370(14):0773-7574.) Cologuard may produce a false negative or false positive result (no colorectal cancer or precancerous polyp present at colonoscopy follow up). A negative Cologuard test result does not guarantee the absence of CRC or advanced adenoma (pre-cancer). The current Cologuard screening interval is every 3 years. ([place] Cancer Society and U.S. Multi-Society Task Force). Cologuard performance data in a 10,000 patient pivotal study using colonoscopy as the reference method can be accessed at the following location: www.Haoguihua.Attolight/results. Additional description of the Cologuard test process, warnings and precautions can be found at www.Violetoguard.com. Stool specimen (specimen) (Rectum) 03/11/2023 11:50 AM CDT 03/12/2023 1:54 PM CDT us Meagan JENSEN URINE Final Resu lt [facility] (CLIA #:[id number]) [place] [address], * ANTI HCV (07/20/2021 8:26 AM CDT) HEPATITIS C ANTIBODY Non-React girish Non-React girish 07/20/2021 3:[address] Comment:Antibodies to HCV no t detected; does not exclude the possibility of exposure to HCV. Blood BLOOD SPECIMEN / Unknown Venipuncture / Unknown 07/20/2021 8:26 AM CDT 07/20/2021 8:28 AM CDT us Meagan JENSEN SEND OUTS Final Resu lt [facility] [address] [place] [address], from Last 3 Months or Most Recently Relevant to Health Maintenance Insurance [facility] MR Care Teams Inpatient Care Manager Rn Relationship Specialty Start Date End Date Jason Moon DO [address] [place] [address] PCP - General Family Practice 08/08/23
--- OUTSIDE RECORDS SUMMARY | 2025-03-14 15:28 | XMS_ITS | Encounter Summary ---
Author Organization [facility] Address [address] [place] [address] Care Team Providers Care Mirror Machine Feeder Name Role Phone Margareth Hernández MD Primary Care Provider [phone] Augusta Donaldson STICK FEEDER Unavailable Unavaila ble Jason Moon DO Unavailable Reason for Visit * Reason Onset Date Comments Appointment 08/30/2019 called, left mes sandra for patient to call [phone] to schedule an appt with IR @ [facility] Encounter Details Date Type Department Care Team (Late st Contact Info) Description 08/30/2019 Telephone [facility] [address] [place] [address] Liyah Ayala, RN Appointment (called, left message for patient to call [phone] to schedule an appt with IR @ [facility]) Social History Tobacco Use Types Packs/Day Years [...] on filedocumented in this encounter Care Teams Mirror Machine Feeder Relationship Specialty Start Date End Date Margareth Hernández MD [facility] [place] [address] [place] [place] [address] PCP - General Otolaryngology 09/13/18 Augusta Donaldson, STICK FEEDER STICK FEEDER 09/03/24 Jason [place] [address] [place] [address] Home Infusion Following Provider 09/03/24 documented as of this encounter
[2025-03-14 15:38] LABS: Creatinine, Point-of-Care* 1.2 mg/dl (0.6-1.3)
[2025-03-14 15:48] LABS: Basophils Absolute Auto 0.03 K/uL (0.00-0.30); Basophils Percent Auto 0.4 % (0.0-3.0); Eosinophils Absolute Auto 0.05 K/uL (0.00-0.50); Eosinophils Percent Auto 0.7 % (0.0-7.0); Hematocrit 51.5 % (37.0-53.0); Hemoglobin* 17.6 gm/dL (13.5-17.5); Immature Granulocytes Abs Auto 0.08 K/uL (0.00-0.30); Lymphocytes Percent Auto 12.1 % (20-44); Mean Corpuscular HGB Conc 34 gm/dL (32-36); Mean Corpuscular Hemoglobin 30 pg (26-34); Mean Corpuscular Volume 89 fL (80-100); Neutrophils Percent Auto 72.8 % (42.0-72.0); Platelet Count* 244 K/uL (140-440); RDW Coefficient of Variation % 13.5 % (11.5-15.5); Red Blood Count 5.82 m/uL (4.30-5.90); White Blood Count* 7.69 K/uL (4.50-11.00)
[2025-03-14 15:49] LABS: Slide Review Reflex No
[2025-03-14 16:00] LABS: Chloride* 103 mmol/L (96-114); Potassium* 3.5 mmol/L (3.6-5.1); Sodium* 142 mmol/L (135-149)
[2025-03-14 16:03] LABS: Anion Gap 11 mEq/L (7-15); Blood Urea Nitrogen* 28 mg/dL (7-30); Calcium* 9.9 mg/dL (8.4-10.6); Carbon Dioxide* 28 mmol/L (20-32); Creatinine* 1.1 mg/dL (0.5-1.5); Est. Creatinine Clearance* 56.14; Estimated Glomerular Filt Rate 70 ml/min; Glucose* 109 mg/dL (60-115)
[2025-03-14 16:44] VITALS: BP 128/67; PULSE 77; RESP 16; O2SAT 95
== END 2025-03-14 17:12 | disposition home or self-care (01) ==
PROVIDERS: Emergency Provider Emergency Medicine Emergency Medical Services; PCP Family Medicine
DX: K59.00 Constipation, unspecified (principal); R53.1 Weakness
CPT/HCPCS: 36415; 74177; 80048; 82565; 85025; 99284; 99285; Q9967

== ENCOUNTER 2025-03-18 11:53 | Outpatient (CLI) | payer MEDICARE, SELFPAY | END 2025-03-18 11:54 | disposition home or self-care (01) | LOC: AMB 03-21 08:41 | PROVIDERS: PCP Family Medicine; Visit Provider Internal Medicine | DX: R53.1 Weakness (principal); R32 Unspecified urinary incontinence; R20.0 Anesthesia of skin | CPT/HCPCS: A0425; A0429 ==

== ENCOUNTER 2025-03-18 12:39 | Observation (INO) | payer MEDICARE, SELFPAY ==
[2025-03-18 12:40] VITALS: BP 139/76; PULSE 72; RESP 18; TEMP 36.3; O2SAT 97; BMI 23.6
--- OUTSIDE RECORDS SUMMARY | 2025-03-18 12:42 | XMS_ITS | Clinical Summary ---
Author Organization [facility] Address [address] [place] [address] Care Team Providers Care Wire Mill Rover Name Role Phone Kathi Moonkajal MAC Primary Care Provider [phone] Allergies No known active allergies Medications Multivits,Ca,Minera [...] Type Department Care Team Description 03/14/2025 Telephone [facility] [address] [place] [address] Jason Moon, Concerns from Last 3 Months [...] Description 03/21/2025 12:25 PM CDT Office Visit [facility] [address] [place] [address] Jason Moon DO [address] [place] [address] Health Maintenance Due Date Last Done Comments [...] 65+ 08/12/2025, 08/08/2023, 07/10/2022 Fecal testing sDNA-FIT ([place] guard) for age 45-75 03/11/2026 03/11/2023, 08/08/2021, [...] LDL-C. Marv SS et al. LUISITO. 2013;310(19): 1046-0251 (http://education.[employer]/faq/VXM149) CHOL/HDLC RATIO 2.6 <5.0 (calc) [employer] NON HDL CHOLESTEROL 79 <130 mg/dL (calc) [employer] Marie Comment: For patients with diabetes plus 1 major ASCVD risk factor, treating to a non-HDL-C goal of <100 mg/dL (LDL-C of <70 mg/dL) is considered a therapeutic option. Blood BLOOD SPECIMEN / Unknown 08/11/2024 10:56 AM CDT 08/11/2024 10:56 AM CDT us Jason Moon DO CHEMISTRY Final Result [employer] [facility] [address] [place] [address], [facility] [address] [place] [address] * CT CHEST SCREENING LOW DOSE WO [...] a secondary overread leveraging technology deployed at [facility], a previously undocumented finding has been [...] Tobacco dependence. High-risk patient with greater than 25-qmhw-ezva smoking history. TECHNIQUE: Low-dose lung cancer screening [...] to lower lumbar spine on the lateral metal fitters and machinists image). us Jason Moon DO CT Edited Result - Final * SDNA-FIT EXTERNAL (COLOGUARD) (03/11/2023 11:50 AM CDT) NONINV COLON CA DNA+OCC BLD SCRN STL-IMP Negative Negative 03/20/2023 2:58 AM CDT [facility] (CLIA #:[id number]) Comment: NEGATIVE TEST RESULT. A negative Cologuard [...] Gutierrez et al, N Engl J Med 2014;370(14):9534-5680) The normal value (reference range) for this assay is negative. COLOGUARD RE-SCREENING RECOMMENDATION: Periodic colorectal cancer screening is an important part of preventive healthcare for asymptomatic individuals at average risk for colorectal cancer. Following a negative Cologuard result, the Italian Cancer Society and U.S. Multi-Society Task Force screening guidelines recommend a Cologuard re-screening interval of 3 years. References: Italian Cancer Society Guideline for Colorectal Cancer Screening: https://www.cancer.org/cancer/ekjhz-ljndmb-trdkwa/fayqakcvs-hzdjicznf-uczrnnp/ac s-rec ommendations.html.; Cem DK, Geraldo CR, Jon SimsK, Colorectal Cancer Screening: Recommendations for Physicians and Patients from the U.S. Multi-Society Task Force on Colorectal Cancer Screening , Am J Gastroenterology 2017; 112:5453-2650. TEST DESCRIPTION: Composite algorithmic analysis of stool [...] (Bev Akins al, N Engl J Med 2014;370(14):5508-7334.) Cologuard may produce a false negative or false positive result (no colorectal cancer or precancerous polyp present at colonoscopy follow up). A negative Cologuard test result does not guarantee the absence of CRC or advanced adenoma (pre-cancer). The current Cologuard screening interval is every 3 years. (Italian Cancer Society and U.S. Multi-Society Task Force). Cologuard performance data in a 10,000 patient pivotal study using colonoscopy as the reference method can be accessed at the following location: www.[employer].ITDatabase/results. Additional description of the Cologuard test process, warnings and precautions can be found at www.x.aioguard.com. Stool specimen (specimen) (Rectum) 03/11/2023 11:50 AM CDT 03/12/2023 1:54 PM CDT us Meagan JENSEN URINE Final Resu lt [employer] (CLIA #:[id number]) [place] [address], * ANTI HCV (07/20/2021 8:26 AM CDT) HEPATITIS C ANTIBODY Non-React girish Non-React girish 07/20/2021 3:50 PM CDT [facility] Comment:Antibodies to HCV no t detected; does not exclude the possibility of exposure to HCV. Blood BLOOD SPECIMEN / Unknown Venipuncture / Unknown 07/20/2021 8:26 AM CDT 07/20/2021 8:28 AM CDT us Meagan JENSEN SEND OUTS Final Resu lt [facility] [address] [place] [address], from Last 3 Months or Most Recently Relevant to Health Maintenance Insurance [facility] MR Care Teams Wire Mill Rover Relationship Specialty Start Date End Date Jason Moon DO [address] [place] [address] PCP - General Family Practice 08/08/23
--- OUTSIDE RECORDS SUMMARY | 2025-03-18 12:42 | XMS_ITS ---
Author Organization [facility] Address [address] [place] [address] Care Team Providers Care Rcis Name Role Phone Margareth Hernández MD Primary Care Provider Augusta Donaldson LPN Unavailable Unavaila ble Jason Moon DO Unavailable Enteral Status:Enrolled (Active) Start date:07/22/2024 Enrollment date:07/23/2024 Linked medications:Nutritional Supplements (Active) Related program episode:Home Infusion (Active) Case Team Name Relationship Phone Augusta Donaldson LPN RN PALLIATIVE CARE Continued Care and Services Coordination
--- OUTSIDE RECORDS SUMMARY | 2025-03-18 12:42 | XMS_ITS ---
Author Organization [facility] Address [address] [place] [address] Care Team Providers Care Contour Band Saw Operator Vertical Name Role Phone Margareth Hernández MD Primary Care Provider Augusta Donaldson LPN Unavailable Unavaila ble Jason Moon DO Unavailable Home Infusion Status:Enrolled (Active) Start date:07/22/2024 Enrollment date:07/23/2024 Related service episodes:Enteral (Active) Case Team Name Relationship Phone Augusta Donaldson LPN SPINDLE FRAME CARVER Continued Care and Services Coordination
--- OUTSIDE RECORDS SUMMARY | 2025-03-18 12:42 | XMS_ITS | Encounter Summary ---
Author Organization [facility] Address [address] [place] [address] Care Team Providers Care Nuclear Technician Name Role Phone Margareth Hernández MD Primary Care Provider Augusta Donaldson INFECTIOUS WASTE TECHNICIAN Unavailable Unavaila ble Jason Moon DO Unavailable Encounter Details Date Type Department Care Team (Late st Contact Info) Description 09/13/[address] [phone] Margareth Hernández MD [facility] [place] [address] [place] [address] Social History Tobacco Use Types Packs/Day Years [...] on filedocumented in this encounter Care Teams Nuclear Technician Relationship Specialty Start Date End Date Margareth Hernández MD [facility] [address] [place] [address] PCP - General Otolaryngology 09/13/18 Augusta Donaldson, DEE INFECTIOUS WASTE TECHNICIAN 09/03/24 [place] [address] Home Infusion Following Provider 09/03/24 documented as of this encounter
--- OUTSIDE RECORDS SUMMARY | 2025-03-18 12:42 | XMS_ITS | Encounter Summary ---
Author Organization [facility] Address [address] [place] [address] Care Team Providers Care Conditioning Yard Supervisor Name Role Phone Margareth Hernández MD Primary Care Provider Augusta Donaldson BICYCLE SERVICE TECHNICIAN Unavailable Unavaila ble Jason Moon DO Unavailable Reason for Visit * Reason Onset Date Comments Appointment 08/30/2019 called, left mes sandra for patient to call [phone] to schedule an appt with IR @ [facility] Encounter Details Date Type Department Care Team (Late st Contact Info) Description 08/30/2019 Telephone Imaging [address] [place] [address] Liyah Ayala, RN Appointment (called, left message for patient to call [phone] to schedule an appt with IR @ [facility]) Social History Tobacco Use Types Packs/Day Years [...] on filedocumented in this encounter Care Teams Conditioning Yard Supervisor Relationship Specialty Start Date End Date Margareth Hernández MD [facility] [place] [address] [place] [address] PCP - General Otolaryngology 09/13/18 Augusta Donaldson, BICYCLE SERVICE TECHNICIAN BICYCLE SERVICE TECHNICIAN 09/03/24 Jason Moon DO [address] [place] [address] Home Infusion Following Provider 09/03/24 documented as of this encounter
--- OUTSIDE RECORDS SUMMARY | 2025-03-18 12:42 | XMS_ITS | Encounter Summary ---
Author Organization [facility] Address [address] [place] [address]. [place] [address] Care Team Providers Care Pulp Grinder Name Role Phone Margareth Hernández MD Primary Care Provider [phone] Augusta Donaldson WORKERS COMPENSATION LEGAL SECRETARY Unavailable Unavaila Jason Heath DO Unavailable Encounter Details Date Type Department Care Team (Late st Contact Info) Description 03/14/2025 Home Infusion [facility] [address] [place] [phone] Augusta Donaldson, WORKERS COMPENSATION LEGAL SECRETARY Social History Tobacco Use Types Packs/Day Years [...] on filedocumented in this encounter Care Teams Pulp Grinder Relationship Specialty Start Date End Date Margareth Hernández MD [facility] [place] [address] [place] [address] [place] [address] PCP - General Otolaryngology 09/13/18 Augusta Donaldson, WORKERS COMPENSATION LEGAL SECRETARY WORKERS COMPENSATION LEGAL SECRETARY 09/03/24 Jason Moon DO [address] [place] [address] Home Infusion Following Provider 09/03/24 documented as of this encounter
--- OUTSIDE RECORDS SUMMARY | 2025-03-18 12:42 | XMS_ITS | Clinical Summary ---
Author Organization [facility] Address [address] [place] [address] Care Team Providers Care Bakery Technician Name Role Phone Margareth Hernández MD Primary Care Provider Augusta Donaldson ELECTRICIAN JOURNEYMAN WIREMAN Unavailable Unavaila ble Jason Moon DO Unavailable Allergies No known active allergies Medications HYDROcodone-acet aminophen 7.5-325 MG/15ML solutionIndicati ons:Cancer of base of tongue (H) Take 10 mLs by mouth every 4 hours as needed for pain (moderate to severe) 200 mL 09/02/2018 Active multivitamin, therapeutic with minerals (THERA-VIT-M) TABS tablet Take 1 tablet by mouth daily Active [place]-3 Fatty Acids (FISH OIL) 1200 MG capsule [...] Infuse Orally - 4 cartons per day. 11363 mL 11 02/16/2025 9:25 AM CDT 10/18/2024 10/18/20 25 Active Active Problems Problem Noted Date Diagnosed Date Oral hemorrhage 09/13/2018 Encounters Date Type Department Care Team Description 03/14/2025 Home Infusion [facility] [address] [place] [phone] Augusta Donaldson LPN 12/29/2024 Home Infusion [facility] [address] [place] [phone] Augusta Donaldson LPN from Last 3 Months [...] Advance Directives For more information, please contact: [phone] * Full Code (Latest Code Status on File) Date Activated Date Inactivated Comments 09/14/2018 7:46 AM 09/09/2019 9:00 AM Question Answer Comments Code status determined by: Discussion with kristina nt/legal decision maker * Full Code Date Activated Date Inactivated Comments 09/13/2018 3:21 PM 09/14/2018 7:46 AM Question Answer Comments Code status determined by: Discussion with kristina nt/legal decision maker Care Teams Bakery Technician Relationship Specialty Start Date End Date Margareth Hernández MD [facility] [place] [address] [place] [address] PCP - General Otolaryngology 09/13/18 Augusta Donaldson, ELECTRICIAN JOURNEYMAN WIREMAN ELECTRICIAN JOURNEYMAN WIREMAN 09/03/24 Jason Moon DO [facility] [place] [address] Home Infusion Following Provider 09/03/24
--- OUTSIDE RECORDS SUMMARY | 2025-03-18 12:42 | XMS_ITS | Encounter Summary ---
Author Organization [facility] Address [address] [place] [address]. [place] [address] Care Team Providers Care Pen Maker Name Role Phone Margareth Hernández MD Primary Care Provider [phone] Augusta Donaldson CHAPERONE Unavailable Unavaila Jason Heath DO Unavailable Encounter Details Date Type Department Care Team (Late st Contact Info) Description 12/29/2024 Home Infusion [facility] [address] [place] [phone] Augusta Donaldson, CHAPERONE Social History Tobacco Use Types Packs/Day Years [...] on filedocumented in this encounter Care Teams Pen Maker Relationship Specialty Start Date End Date Margareth Hernández MD [facility] [place] [address] [place] [address] [place] [address] PCP - General Otolaryngology 09/13/18 Augusta Donaldson, CHAPERONE CHAPERONE 09/03/24 Jason Moon DO [address] [place] [address] Home Infusion Following Provider 09/03/24 documented as of this encounter
--- NOTE | 2025-03-18 13:00 | ED.GENADULT ---
HPI - General Adult General Chief complaint: Weakness Stated complaint: leg weakness and abdominal pain Time Seen by Provider: 03/18/25 12:46 History of Present Illness HPI narrative: Patient is a 74-year-old gentleman who is here 2 or 3 days ago with generalized weakness. He had been working in his garage and felt like he had overdone it. He also has some abdominal pain and had CT scan standard lab work. CT showed constipation with chronic appearing hernias. No signs of incarceration. Patient presents today stating that his leg weakness is worsening more on the right than the left and he does not feel safe being at home. He has had no falls. No fevers no chills no night sweats no other focal neurologic defects. No signs of a stroke. He just feels weak in his legs. When asked how long this been going on he says approximately a week progressively. Related Data Home Medications ?Medication ?Instructions ?Recorded ?Confirmed food supplemt, lactose-reduced ea PO 11/11/23 11/11/23 0.04 gram-1 kcal/mL oral liquid (Boost) atorvastatin 20 mg tablet 20 mg PO DAILY 03/18/25 03/18/25 Allergies Allergy/AdvReac Type Severity Reaction Status Date / Time No Known Drug Allergies Allergy Verified 03/18/25 12:49 Review of Systems Status of ROS: Reports: 10 or more systems reviewed and unremarkable except as noted in History and below [facility] Social History Smoking Status: Current every day smoker What tobacco products do you use: cigarettes How often do you have a drink containing alcohol: never AUDIT-C Alcohol total score: 0 Non-prescribed substance use: denies use Exam Narrative: Exam Narrative: EXAM GENERAL: Patient appears comfortable and well. EYES: No scleral icterus. LYMPH: No supraclavicular or cervical lymphadenopathy. SKIN: Visible skin seen during exam normal or with benign process only. EXT: No dependent lower extremity pedal edema. HEART: Regular rate and rhythm with no murmurs, rubs, or gallops. LUNGS: Clear to auscultation bilaterally with no crackles or wheezes. ABD: Soft, non tender, non distended. PSYCH: Good eye contact, speech is not pressured. Cranial nerves 2-12 grossly intact no focal defects. Const: Vital Signs, click to edit/add: Vital Signs - 24 hr 03/18/25 12:40 Temperature 97.3 F L Pulse Rate [Left P ulse Oximeter] 72 Respiratory Rate 18 Blood Pressure [Ri ght Upper Arm] 139/76 Pulse Oximetry 97 Oxygen Delivery Me thod Room Air Course Course ED Course: Patient seen and examined. Previous notes reviewed. Do not see any acute abnormalities. He does have some minor weakness in the right leg and his gait is becoming more difficult. 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 He did have an extensive workup in no obvious etiologies were noted the other day. I do not believe aggressive workup is indicated. He likely would benefit from physical therapy. Patient states he is unable to go home safely although he lives with his daughter. At this time I have asked social science research assistant to come and help us with disposition. Reevaluation(s) Reevaluation #1: Patient's previous workup reviewed. This time were of physical therapy come in to assess him. She had x-ray of his lumbar spine and his right knee. Case discussed in anticipation of possible admission with hospitalist. Vital Signs Vital signs: Initial Vital Signs Temperature 97.3 F L 03/18/25 12:40 Temperature Source Temporal Artery Scan 03/18/25 12:40 Pulse Rate 72 03/18/25 12:40 Respiratory Rate 18 03/18/25 12:40 Blood Pressure 139/76 03/18/25 12:40 Blood Pressure Mean 97 03/18/25 12:40 Blood Pressure Position Supine 03/18/25 12:40 Pulse Oximetry 97 03/18/25 12:40 Oxygen Delivery Method Room Air 03/18/25 12:40 Vital Signs Temperature 97.3 F L 03/18/25 12:40 Pulse Rate 72 03/18/25 12:40 Respiratory Rate 18 03/18/25 12:40 Blood Pressure 139/76 03/18/25 12:40 Pulse Oximetry 97 03/18/25 12:40 Oxygen Delivery Method Room Air 03/18/25 12:40 Temperature 97.3 F L 03/18/25 12:40 Pulse Rate 72 03/18/25 12:40 Respiratory Rate 18 03/18/25 12:40 Blood Pressure 139/76 03/18/25 12:40 Pulse Oximetry 97 03/18/25 12:40 Oxygen Delivery Method Room Air 03/18/25 12:40 Medical Decision Making MDM Narrative Medical decision making narrative: Patient presents with persistent weakness of the lower extremities. He was here several days ago and had a full workup done. To be constipated but no other acute abnormalities. The lower extremity weakness has worsened primarily on the right. He feels like his leg is going to give out. We did have physical therapy assessment today and patient does have footdrop on the right. Um he is a major fall risk if we sent him home. I did speak with the hospitalist as well as social science research assistant will be getting an MRI of his lumbar spine x-ray of his right knee and patient will need to be admitted for safety and further evaluation. Discharge Plan Discharge Clinical Impression: Weakness Patient Disposition: Admitted As Observation Condition: Stable Activity Level: Other Discharge Diet: Other Prescriptions: No Action Boost 0.04 gram- 1 kcal/mL liquid PO atorvastatin 20 mg tablet 20 mg PO DAILY Follow Up/Referrals: Modesta Moon DO [Primary Care Provider] -
--- OUTSIDE RECORDS SUMMARY | 2025-03-18 13:15 | XMS_ITS ---
Author Organization [facility] Address [address] [place] [address] Care Team Providers Care Blanket Weaver Name Role Phone Margareth Hernández MD Primary Care Provider Augusta Donaldson LPN Unavailable Unavaila ble Jason Moon DO Unavailable Home Infusion Status:Enrolled (Active) Start date:07/22/2024 Enrollment date:07/23/2024 Related service episodes:Enteral (Active) Case Team Name Relationship Phone Augusta Donaldson LPN BRANCH CHIEF Continued Care and Services Coordination
--- OUTSIDE RECORDS SUMMARY | 2025-03-18 13:15 | XMS_ITS ---
Author Organization [facility] Address [address] [place] [address] Care Team Providers Care Coping Machine Operator Name Role Phone Margareth Hernández MD Primary Care Provider Augusta Donaldson LPN Unavailable Unavaila ble Jason Moon DO Unavailable Enteral Status:Enrolled (Active) Start date:07/22/2024 Enrollment date:07/23/2024 Linked medications:Nutritional Supplements (Active) Related program episode:Home Infusion (Active) Case Team Name Relationship Phone Augusta Donaldson LPN GLUING CREW LEADER Continued Care and Services Coordination
--- OUTSIDE RECORDS SUMMARY | 2025-03-18 13:15 | XMS_ITS | Clinical Summary ---
Author Organization [facility] Address [address] [place] [address] Care Team Providers Care Battery Technician Name Role Phone Margareth Hernández MD Primary Care Provider [phone] Augusta Donaldson LOSS PREVENTION SPECIALIST Unavailable Unavaila ble Jason Moon DO Unavailable Allergies No known active allergies Medications HYDROcodone-acet aminophen 7.5-325 MG/15ML solutionIndicati ons:Cancer of base of tongue (H) Take 10 mLs by mouth every 4 hours as needed for pain (moderate to severe) 200 mL 09/02/2018 Active multivitamin, therapeutic with minerals (THERA-VIT-M) TABS tablet Take 1 tablet by mouth daily Active [place]-3 Fatty Acids (FISH OIL) 1200 MG capsule [...] Infuse Orally - 4 cartons per day. [address] mL 11 02/16/2025 9:25 AM CDT 10/18/2024 10/18/20 25 Active Active Problems Problem Noted Date Diagnosed Date Oral hemorrhage 09/13/2018 Encounters Date Type Department Care Team Description 03/14/2025 Home Infusion [facility] [address] [place] [phone] Augusta Donaldson LPN 12/29/2024 Home Infusion [facility] [address] [place] [phone] Augusta Donaldson LPN from Last 3 Months [...] Advance Directives For more information, please contact: [phone] * Full Code (Latest Code Status on File) Date Activated Date Inactivated Comments 09/14/2018 7:46 AM 09/09/2019 9:00 AM Question Answer Comments Code status determined by: Discussion with kristina nt/legal decision maker * Full Code Date Activated Date Inactivated Comments 09/13/2018 3:21 PM 09/14/2018 7:46 AM Question Answer Comments Code status determined by: Discussion with kristina nt/legal decision maker Care Teams Battery Technician Relationship Specialty Start Date End Date Margareth Hernández MD [facility] [place] [address] [place] [address] PCP - General Otolaryngology 09/13/18 Augusta Donaldson, LOSS PREVENTION SPECIALIST LOSS PREVENTION SPECIALIST 09/03/24 Jason Moon DO [facility] [place] [address] Home Infusion Following Provider 09/03/24
--- OUTSIDE RECORDS SUMMARY | 2025-03-18 13:16 | XMS_ITS | Encounter Summary ---
Author Organization [facility] Address [address] [place] [address]. [place] [address] Care Team Providers Care Ratings Analyst Name Role Phone Margareth Hernández MD Primary Care Provider Augusta Donaldson MANUGRAPHER Unavailable Unavaila Jason Heath DO Unavailable Encounter Details Date Type Department Care Team (Late st Contact Info) Description 03/14/2025 Home Infusion [facility] [address] [place] [phone] Augusta Donaldson, MANUGRAPHER Social History Tobacco Use Types Packs/Day Years [...] on filedocumented in this encounter Care Teams Ratings Analyst Relationship Specialty Start Date End Date Margareth Hernández MD [facility] [place] [address] [place] [address] [place] [address] PCP - General Otolaryngology 09/13/18 Augusta Donaldson, MANUGRAPHER MANUGRAPHER 09/03/24 Jason Moon DO [address] [place] [address] Home Infusion Following Provider 09/03/24 documented as of this encounter
--- OUTSIDE RECORDS SUMMARY | 2025-03-18 13:16 | XMS_ITS | Encounter Summary ---
Author Organization [facility] Address [address] [place] [address] Care Team Providers Care Trolley Car Mechanic Name Role Phone Margareth Hernández MD Primary Care Provider Augusta Donaldson RADIO RIGGER Unavailable Unavaila ble Jason Moon DO Unavailable Encounter Details Date Type Department Care Team (Late st Contact Info) Description 09/13/[address] [phone] Margareth Hernández MD [facility] [place] [address] [place] [address] Social History Tobacco Use Types Packs/Day Years [...] on filedocumented in this encounter Care Teams Trolley Car Mechanic Relationship Specialty Start Date End Date Margareth Hernández MD [facility] [address] [place] [address] PCP - General Otolaryngology 09/13/18 Augusta Donaldson, DEE RADIO RIGGER 09/03/24 Jason [place] [address] Home Infusion Following Provider 09/03/24 documented as of this encounter
--- OUTSIDE RECORDS SUMMARY | 2025-03-18 13:16 | XMS_ITS | Encounter Summary ---
Author Organization [facility] Address [address] [place] [address]. [place] [address] Care Team Providers Care Bagger Meat Name Role Phone Margareth Hernández MD Primary Care Provider [phone] Augusta Donaldson CAUSTIC CRESYLATE SHIFT SUPERINTENDENT Unavailable Unavaila Jason Heath DO Unavailable Encounter Details Date Type Department Care Team (Late st Contact Info) Description 12/29/2024 Home Infusion [facility] [address] [place] [id number] Augusta Donaldson, CAUSTIC CRESYLATE SHIFT SUPERINTENDENT Social History Tobacco Use Types Packs/Day Years [...] on filedocumented in this encounter Care Teams Bagger Meat Relationship Specialty Start Date End Date Margareth Hernández MD [facility] [address] [place] [address] [place] [address] PCP - General Otolaryngology 09/13/18 Augusta Donaldson, CAUSTIC CRESYLATE SHIFT SUPERINTENDENT CAUSTIC CRESYLATE SHIFT SUPERINTENDENT 09/03/24 Jason Moon DO [address] [place] [address] Home Infusion Following Provider 09/03/24 documented as of this encounter
--- OUTSIDE RECORDS SUMMARY | 2025-03-18 13:16 | XMS_ITS | Clinical Summary ---
Author Organization [facility] Address [address] [place] [address] Care Team Providers Care Nurse Tech Name Role Phone Kathi Moonkajal MAC Primary Care Provider [phone] Allergies No known active allergies Medications Multivits,Ca,Minera [...] Type Department Care Team Description 03/14/2025 Telephone [facility] [address] [place] [address] Jason Moon, Concerns from Last 3 Months [...] Description 03/21/2025 12:25 PM CDT Office Visit [facility] [address] [place] [address] Jason Moon DO [address] [place] [address] Health Maintenance Due Date Last Done Comments [...] 65+ 08/12/2025, 08/08/2023, 07/10/2022 Fecal testing sDNA-FIT (Dexter guard) for age 45-75 03/11/2026 03/11/2023, 08/08/2021, [...] LDL-C. Marv SS et al. LUISITO. 2013;310(19): 1007-3464 (http://education.[employer]/faq/PYL688) CHOL/HDLC RATIO 2.6 <5.0 (calc) [employer] Frank NON HDL CHOLESTEROL 79 <130 mg/dL (calc) [employer] Marie Comment: For patients with diabetes plus 1 major ASCVD risk factor, treating to a non-HDL-C goal of <100 mg/dL (LDL-C of <70 mg/dL) is considered a therapeutic option. Blood BLOOD SPECIMEN / Unknown 08/11/2024 10:56 AM CDT 08/11/2024 10:56 AM CDT us Jason Moon DO CHEMISTRY Final Result [facility] [address] [place] [address], [facility] [address] [place] [address] * CT CHEST SCREENING LOW DOSE WO [...] a secondary overread leveraging technology deployed at [facility], a previously undocumented finding has been [...] Tobacco dependence. High-risk patient with greater than 96-qkvv-lnqo smoking history. TECHNIQUE: Low-dose lung cancer screening [...] to lower lumbar spine on the lateral rail gang supervisor image). us Jason Moon DO CT Edited Result - Final * SDNA-FIT EXTERNAL (COLOGUARD) (03/11/2023 11:50 AM CDT) NONINV COLON CA DNA+OCC BLD SCRN STL-IMP Negative Negative 03/20/2023 2:58 AM CDT The car easily beat (CLIA #:[id number]) Comment: NEGATIVE TEST RESULT. A negative Cologuard [...] Gutierrez et al, N Engl J Med 2014;370(14):2769-9052) The normal value (reference range) for this assay is negative. COLOGUARD RE-SCREENING RECOMMENDATION: Periodic colorectal cancer screening is an important part of preventive healthcare for asymptomatic individuals at average risk for colorectal cancer. Following a negative Cologuard result, the [place] Cancer Society and U.S. Multi-Society Task Force screening guidelines recommend a Cologuard re-screening interval of 3 years. References: [place] Cancer Society Guideline for Colorectal Cancer Screening: https://www.cancer.org/cancer/qywqd-kietkz-kzmpst/fegangtso-ptnqmfjft-qjzfotx/ac s-rec ommendations.html.; Cem DK, Geraldo CR, Jon SimsK, Colorectal Cancer Screening: Recommendations for Physicians and Patients from the U.S. Multi-Society Task Force on Colorectal Cancer Screening , Am J Gastroenterology 2017; 112:1522-7076. TEST DESCRIPTION: Composite algorithmic analysis of stool [...] (Bev Akins al, N Engl J Med 2014;370(14):4551-0959.) Cologuard may produce a false negative or false positive result (no colorectal cancer or precancerous polyp present at colonoscopy follow up). A negative Cologuard test result does not guarantee the absence of CRC or advanced adenoma (pre-cancer). The current Cologuard screening interval is every 3 years. ([place] Cancer Society and U.S. Multi-Society Task Force). Cologuard performance data in a 10,000 patient pivotal study using colonoscopy as the reference method can be accessed at the following location: www.HomeLight.[employer]/results. Additional description of the Cologuard test process, warnings and precautions can be found at www.Smartfieldoguard.com. Stool specimen (specimen) (Rectum) 03/11/2023 11:50 AM CDT 03/12/2023 1:54 PM CDT us Meagan JENSEN URINE Final Resu lt The car easily beat (CLIA #:[id number]) [place] [address], * ANTI HCV (07/20/2021 8:26 AM CDT) HEPATITIS C ANTIBODY Non-React girish Non-React girish 07/20/2021 3:50 PM CDT [facility] Comment:Antibodies to HCV no t detected; does not exclude the possibility of exposure to HCV. Blood BLOOD SPECIMEN / Unknown Venipuncture / Unknown 07/20/2021 8:26 AM CDT 07/20/2021 8:28 AM CDT us Meagan JENSEN SEND OUTS Final Resu lt [facility] [address] [place] [address], from Last 3 Months or Most Recently Relevant to Health Maintenance Insurance [facility] Care Teams Nurse Tech Relationship Specialty Start Date End Date Jason Moon DO [address] [place] [address] PCP - General Family Practice 08/08/23
--- OUTSIDE RECORDS SUMMARY | 2025-03-18 13:16 | XMS_ITS | Encounter Summary ---
Author Organization [facility] Address [address] [place] [address] Care Team Providers Care Chief Administrative Officer Name Role Phone Margareth Hernández MD Primary Care Provider Augusta Donaldson POOL COORDINATOR Unavailable Unavaila ble Jason Moon DO Unavailable Reason for Visit * Reason Onset Date Comments Appointment 08/30/2019 called, left mes sandra for patient to call [phone] to schedule an appt with IR @ [facility] Encounter Details Date Type Department Care Team (Late st Contact Info) Description 08/30/[address] [facility] [address] [place] [address] Liyah Ayala, RN Appointment (called, left message for patient to call [phone] to schedule an appt with IR @ [facility]) Social History Tobacco Use Types Packs/Day Years [...] filedocumented in this encounter Care Teams Chief Administrative Officer Relationship Specialty Start Date End Date Margareth Hernández MD [facility] [place] [address] [place] [address] PCP - General Otolaryngology 09/13/18 Augusta Donaldson, POOL COORDINATOR POOL COORDINATOR 09/03/24 Jason Moon [place] [address] [address] Home Infusion Following Provider 09/03/24 documented as of this encounter
--- NOTE | 2025-03-18 14:38 | CRLHL7_ITS ---
For Patients: As a result of the Cures Act, medical imaging exams and procedure reports are released immediately into your electronic medical record. You may view this report before your referring provider. If you have questions, please contact your health care provider. Indication: Pain Technique: Three views of the right knee. Comparison: Three views of the right knee. Findings: No acute displaced fracture or malalignment. Mild degenerative changes of the knee. Trace knee joint effusion. Impression: No acute displaced fracture or malalignment. Mild degenerative changes of the knee. Trace knee joint effusion. Dictated by Ronald Dewey MD @ 03/18/2025 4:43:11 PM (Electronically Signed)
--- NOTE | 2025-03-18 15:23 | PC.SOCIAL ---
Addendum entered by LEANNA Aponte 03/18/25 15:40: Discharge planning: Pt is being admitted to med/surg for further work-up. Social work to follow-up as needed. Original Note: Discharge planning: Pt presented to the ER today, which is his second time this week, for weakness. He states he has had increased weakness in his legs over the past week. Pt's states that he is not able to do stairs and is using a walker around the house, which he was not using a week ago. Pt also states that he is not able to lift his legs on his own and now has to use his hands to pick-up/lift his legs. Pt lives with his adult daughter who is home all the time per the pt and his daughter. Pt also usually drives, but has not in the past week since his weakness started. Pt's daughter called 911 today because pt could not safely get into the car to come to the ER. Pt's daughter states that she is willing to help the pt get around the house. Pt does have an appointment on Wednesday 03/21 with his PCP to also address his weakness issues. general house worker spoke to the provider on duty in the ER and it was determined that is would be best to have the pt assessed PT. Social work to follow-up as needed.
--- NOTE | 2025-03-18 15:25 | CRLHL7_ITS ---
For Patients: As a result of the Century Cures Act, medical imaging exams and procedure reports are released immediately into your electronic medical record. You may view this report before your referring provider. If you have questions, please contact your health care provider. INDICATION: Right leg weakness. COMPARISON: CT 03/14/2025. Technique Sagittal T1, T2, and STIR sequences. Axial T1 and T2 weighted sequences. FINDINGS: Normal vertebral body alignment. No fractures. No vertebral body loss of height. No spondylolisthesis. No evidence injury. No suspicious osseous lesions. Vertebral body hemangioma T12. Normal conus terminates at L1. T12-L1 L1-2: No spinal canal neural foraminal narrowing. L2-3: Disc degeneration posted disc bulge. No spinal canal or neural foraminal narrowing. L3-4: Disc degeneration and loss disc height. Mild Modic type 1 endplate changes. Diffuse disc bulge. Superimposed right paracentral disc extrusion and peridiscal cyst measuring approximately 7 mm in diameter with 7 mm of caudal migration (series 7, image 24; series 2, image 7). Mild narrowing of spinal canal. The extruded disc impinges upon the traversing right L4 nerve root. Mild narrowing of bilateral foramina. Mild facet arthropathy. L4-5: Disc degeneration and loss disc height. Mild Modic type 1 endplate changes. Posterior disc bulge. Mild narrowing of spinal canal. Mild narrowing of the bilateral foramina. Mild facet arthropathy. L5-S1: Disc degeneration posted disc bulge. No narrowing of splenic canal. No impingement of the traversing S1 nerve roots. Mild right and moderate left neural foraminal narrowing. Degenerative changes of the SI joints. Normal paraspinal soft tissues. IMPRESSION: 1. Normal alignment. No fractures 2. Lumbar spondylosis 3. At L3-4, disc degeneration. Diffuse disc bulge with a right paracentral disc extrusion and parameniscal cyst. Mild narrowing of the spinal canal. Impingement of the traversing right L4 nerve root. Mild narrowing of the bilateral neural foramina 4. At L4-5, mild narrowing of the spinal canal and bilateral neural foramina 5. At L5-S1, mild right and moderate left neural foraminal narrowing. Dictated by Anthony Golden MD @ 03/18/2025 5:04:13 PM (Electronically Signed)
[2025-03-18 15:57] VITALS: BP 133/70; PULSE 78; RESP 18; TEMP 36.1; O2SAT 97
--- NOTE | 2025-03-18 16:35 | P.IMHP_ITS ---
Assessment and Plan Assessment and plan (1) Intervertebral disc extrusion: Problem comment: -L3-4 level with parameniscal cyst; impinges upon the right L4 nerve root. -scheduled NSAIDs, gabapentin. Inpatient PT and OT team. -early coordination for JUDY and possible surgical intervention Status: Acute (2) Right leg weakness: Problem comment: -related to L4 nerve root impingement -as above Status: Acute (3) MCI (mild cognitive impairment): Status: Acute (4) Constipation: Problem comment: -severe, ct confirmed -manual disempaction by patient for last two weeks. needs robust bowel regimen. Status: Acute (5) Tobacco use disorder: Status: Acute (6) Restrictions of the diet: Problem comment: -liquid only. high calorie protein supplementation that is provided by ENT/PCP. Status: Acute (7) Restless legs: Status: Acute Hospitalist- H&P: HPI History of Present Illness Date Seen: 03/18/25 Chief complaint: leg weakness and abdominal pain Narrative: ADMISSION HISTORY AND PHYSICAL - HOSPITALIST Chief Complaint: weakness, right leg unsteady; buckling. I don't feel safe at home HPI: 74 y/o with hx of tongue cancer, smoking and hyperlipidemia presents for the 2nd time in 3-4 days to our ED with weakness; unable to walk well and feeling off balance. He had abdominal discomfort as well during the first visit. The ED workup was unrevealing - other than constipation and some stable appearing hernias. Just before the first ED visit he had been moving some boxes and he felt wiped out. no falls or injury. Just noted weakness in the legs, belly pain. The abdominal discomfort is improved but his R>L leg weakness which is described as a sense of buckling at any time is worse. No evidence of CVA; no elevated blood pressures. no blood in the stool. labs are not drawn today but are reviewed from the 03/14. CBC shows elevated hgb (smoker) with a normal WBC count and plt count. some inc rease in his monocyte percentage as well. Normal chemistries noted. ER COURSE: knee films, lumbar MRI. no meds, no labs. CODE STATUS: PCP: Jason Moon DO EMERGENCY CONTACT PLAN: Mellissa Tomas Rel To Pat Unknown Cell I've updated the PFSH, medications and allergies in the Expanse tabs. INVESTIGATIONS: LABS/MICRO/ECG/IMAGING Right Knee Xray: Impression: No acute displaced fracture or malalignment. Mild degenerative changes of the knee. Trace knee joint effusion. Lumbar MR IMPRESSION: 1. Normal alignment. No fractures 2. Lumbar spondylosis 3. At L3-4, disc degeneration. Diffuse disc bulge with a right paracentral disc extrusion and parameniscal cyst. Mild narrowing of the spinal canal. Impingement of the traversing right L4 nerve root. Mild narrowing of the bilateral neural foramina 4. At L4-5, mild narrowing of the spinal canal and bilateral neural foramina 5. At L5-S1, mild right and moderate left neural foraminal narrowing. REVIEW OF SYSTEMS: 12-point ROS completed with patient and negative unless otherwise stated in HPI or below. PHYSICAL EXAM: CONSTITUTIONAL: Conversive, good historian. A/O. Knows setting and context. GENERAL: Well-developed and above ideal body weight, in no respiratory distress. VITAL SIGNS: see record. HEENT: Sclerae are anicteric. No petechiae. CARDIAC: rhythm is regular. There is no S3 or rub. No harsh murmurs. Extremities show trace edema with symmetrical pulses. PULM: good air entry with no wheeze. NEURO: Speech is fluent. A brief neurologic exam is negative other than below comments. MSK: right LE: weak 2/5. decreased tone and reflexes. left LE: essentially normal. rectal tone not checked. SKIN: No rashes, petechiae, concerning changes PSYCHIATRIC: Euthymic. ADMIT TO MEDSURG: FLOOR CARE DVT: Lovenox GI: PO intake Time spent: Today I spent 75 minutes seeing the patient, discussing the patient with ER staff, reviewing Expanse and EPIC notes/diagnostics, discussing the care plan with our care time that includes social work, PT/OT, pharmacy, RT, snf and documenting my impressions and plan in the medical record. [facility] Medical History (Updated 03/18/25 @ 20:15 by Christina Britt MD) Restrictions of the diet ?Z71.3 - Dietary counseling and surveillance (ICD-10) Tobacco use disorder ?F17.200 - Nicotine dependence, unspecified, uncomplicated (ICD-10) MCI (mild cognitive impairment) ?G31.84 - Mild cognitive impairment of uncertain or unknown etiology (ICD-10) Restless legs ?G25.81 - Restless legs syndrome (ICD-10) Hyperlipidemia ?E78.5 - Hyperlipidemia, unspecified (ICD-10) Personal history of malignant neoplasm of other sites of lip, oral cavity, and pharynx ?Z85.818 - Personal history of malignant neoplasm of other sites of lip, oral cavity, and pharynx (ICD-10) Surgical History (Updated 03/18/25 @ 20:15 by Christina Britt MD) S/P tonsillectomy and adenoidectomy ?Z90.89 - Acquired absence of other organs (ICD-10) Social History What is your current living situation?: I presently have a place to live Problems where you live: no known problems Problems where you live details: n/a In the past 12 months, utilities in danger of being shut off: no In past 12 months, lack of transportation kept you from medical appts, meetings, work, or getting things needed for daily living: no In the past 12 mos, have been you worried that your food would run out before you had money to buy more?: never true In the past 12 mos, the food you bought just didn't last and you didn't have money to buy more?: never true Highest level of school completed/degree received: some college, no degree Smoking Status: Current every day smoker What tobacco products do you use: cigarettes Smoking packs per day: 0.5 Smoking cigarettes per day: 10.0 How often do you have a drink containing alcohol: never AUDIT-C Alcohol total score: 0 Non-prescribed substance use: denies use Caffeine: No How often does anyone, including family, friends and others, physically hurt you : never How often does anyone, including family, friends and others, insult or talk down to you: never How often does anyone, including family, friends and others, threaten you with harm: never How often does anyone, including family, friends and others, scream or curse at you: never service: Yes Meds Home Medications and Allergies Home Medications ?Medication ?Instructions ?Recorded ?Confirmed ?Type food supplemt, lactose-reduced ea PO 11/11/23 11/11/23 History 0.04 gram-1 kcal/mL oral liquid (Boost) atorvastatin 20 mg tablet 20 mg PO DAILY 03/18/25 03/18/25 History Allergies Allergy/AdvReac Type Severity Reaction Status Date / Time No Known Drug Allergies Allergy Verified 03/18/25 12:49 Exam Const: Vital Signs, click to edit/add: Vital Signs - 24 hr 03/18/25 12:40 03/18/25 15:57 Temperature 97.3 F L 97.0 F L Pulse Rate [Left P ulse Oximeter] 72 78 Respiratory Rate 18 18 Blood Pressure [Ri ght Upper Arm] 139/76 133/70 Pulse Oximetry 97 97 Oxygen Delivery Me thod Room Air Room Air
[2025-03-18 16:55] VITALS: BP 143/73; PULSE 68; RESP 16; TEMP 37.4; O2SAT 96
[2025-03-18 18:00] VITALS: BMI 23.5
--- NOTE | 2025-03-18 18:51 | PC.NURSE ---
Pt pleasant. VSS. Reports mild pain in RLQ r/t constipation. A&Ox4. Pt require assist of two and pivot with transfers d/t right leg weakness. Pt is resting well at this time. Pt's daughter is going to bring in home supply of high calorie boost.
[2025-03-18 19:45] VITALS: BP 133/77; PULSE 73; RESP 16; TEMP 36.9; O2SAT 99
[2025-03-18] MEDS: GABAPENTIN 100 MG CAPSULE PO (21:49)
[2025-03-18] MEDS: NAPROXEN 250 MG TABLET 500 MG PO (21:49)
[2025-03-18] MEDS: ENOXAPARIN 40 MG/0.4 ML INJ SUBCUT (21:50)
[2025-03-19] VITALS (8 sets, daily range): BP systolic 101–138; BP diastolic 63–77; PULSE 65–79; RESP 16–18; TEMP 36.5–37.3; O2SAT 93–97
[2025-03-19] MEDS: lidocaine HCL 2 % JELLY (TOP) STERILE 6 ML UR ×2 (04:55→23:50)
[2025-03-19 06:33] LABS: HCO3 VBG 30 mmol/L (21-28); PCO2 VBG 46 mmHG (40-50); PO2 VBG 36.9 mmHG (25-47)
[2025-03-19 06:37] LABS: Basophils Absolute Auto 0.05 K/uL (0.00-0.30); Basophils Percent Auto 0.7 % (0.0-3.0); Eosinophils Absolute Auto 0.22 K/uL (0.00-0.50); Eosinophils Percent Auto 3.1 % (0.0-7.0); Hematocrit 47.6 % (37.0-53.0); Immature Granulocytes Abs Auto 0.02 K/uL (0.00-0.30); Immature Granulocytes Pct Auto 0.3 %; Lymphocytes Percent Auto 17.1 % (20-44); Mean Corpuscular HGB Conc 34 gm/dL (32-36); Mean Corpuscular Hemoglobin 30 pg (26-34); Mean Corpuscular Volume 90 fL (80-100); Monocytes Percent Auto 15.2 % (0.0-11.0); Neutrophils Absolute Auto 4.46 K/uL (1.7-7.0); Neutrophils Percent Auto 63.6 % (42.0-72.0); Platelet Count* 231 K/uL (140-440); RDW Coefficient of Variation % 13.5 % (11.5-15.5); Red Blood Count 5.31 m/uL (4.30-5.90); White Blood Count* 7.02 K/uL (4.50-11.00)
--- NOTE | 2025-03-19 06:37 | PC.NURSE ---
Pt is alert and oriented x3. Afebrile. Pt denies pain, chest pain, SOB, and N/V. Pt is up A2 with walker and gait belt. Pt had difficulties urinating, bladder scanned pt for 350-450 ml, pt attempted to void but only got out 50 ml. Pt was straight catheterized for 550 ml, pt tolerated well. No BM overnight.
[2025-03-19 07:02] LABS: Slide Review Reflex No
[2025-03-19 08:58] LABS: Chloride* 103 mmol/L (96-114); Potassium* 3.8 mmol/L (3.6-5.1); Sodium* 140 mmol/L (135-149)
[2025-03-19 09:00] LABS: Blood Urea Nitrogen* 30 mg/dL (7-30); Est. Creatinine Clearance* 61.75; Estimated Glomerular Filt Rate 78 ml/min
[2025-03-19] MEDS: NAPROXEN 250 MG TABLET 500 MG PO ×2 (09:00→17:30)
[2025-03-19 09:01] LABS: Alanine Aminotransferase* 25 U/L (4-50); Alkaline Phosphatase* 96 U/L (40-150); Anion Gap 8 mEq/L (7-15); Aspartate Amino Transferase* 46 U/L (12-35); Bilirubin Total* 0.8 mg/dL (0.1-1.5); Carbon Dioxide* 29 mmol/L (20-32); Glucose* 90 mg/dL (60-115); Total Protein* 6.9 g/dL (6.0-8.3)
[2025-03-19] MEDS: GABAPENTIN 100 MG CAPSULE PO ×3 (09:01→20:44)
[2025-03-19] MEDS: ATORVASTATIN CALCIUM 10 MG TABLET 20 MG PO (09:01)
[2025-03-19 09:04] LABS: C Reactive Protein* < 0.5 mg/dL (0.5-1.0)
[2025-03-19] MEDS: polyethylene glycoL 3350 17 GM PACK PO (11:07)
[2025-03-19] MEDS: bisacodyL 10 MG SUPP.RECT PR (14:27)
[2025-03-19] MEDS: SENNOSIDES/DOCUSATE TABLET 1 TAB PO ×2 (14:32→20:44)
--- NOTE | 2025-03-19 15:13 | P.IMPN_ITS ---
Assessment and Plan Assessment and plan (1) Intervertebral disc extrusion: Problem comment: 03/18/2025: -L3-4 level with parameniscal cyst; impinges upon the right L4 nerve root. -scheduled NSAIDs, gabapentin. Inpatient PT and OT team. -early coordination for JUDY and possible surgical intervention. 03/19/2025: -continue work with PT and OT. Add scheduled acetaminophen. Status: Acute (2) Right leg weakness: Problem comment: -related to L4 nerve root impingement -as above Status: Acute (3) MCI (mild cognitive impairment): Status: Acute (4) Constipation: Problem comment: -severe, ct confirmed -manual disempaction by patient for last two weeks. needs robust bowel regimen. Status: Acute (5) Tobacco use disorder: Status: Acute (6) Restrictions of the diet: Problem comment: -liquid only. high calorie protein supplementation that is provided by ENT/PCP. Status: Acute (7) Restless legs: Status: Acute Plan 1. Reviewed impression, plan, recommendations with patient 2. Answered patient's questions with satisfaction 3. Patient agree with above stated plans and recommendations Total Time Spent Total Time Spent: 25 minutes Subjective Date Seen: 03/19/25 Interval history: 03/18/2025, admission history of present illness: ?74 y/o with hx of tongue cancer, smoking and hyperlipidemia presents for the 2nd time in 3-4 days to our ED with weakness; unable to walk well and feeling off balance. He had abdominal discomfort as well during the first visit. The ED workup was unrevealing - other than constipation and some stable appearing hernias. Just before the first ED visit he had been moving some boxes and he felt wiped out. no falls or injury. Just noted weakness in the legs, belly pain. The abdominal discomfort is improved but his R>L leg weakness which is described as a sense of buckling at any time is worse. No evidence of CVA; no elevated blood pressures. no blood in the stool. labs are not drawn today but are reviewed from the [facility] shows elevated hgb (smoker) with a normal WBC count and plt count. some increase in his monocyte percentage as well. Normal chemistries noted. Umbilical ER COURSE: knee films, lumbar MRI. no meds, no labs. ?INVESTIGATIONS: LABS/MICRO/ECG/IMAGING ?Right Knee Xray: Impression: No acute displaced fracture or malalignment. Mild degenerative changes of the knee. Trace knee joint effusion. ?Lumbar MR IMPRESSION: 1. Normal alignment. No fractures 2. Lumbar spondylosis 3. At L3-4, disc degeneration. Diffuse disc bulge with a right paracentral disc extrusion and parameniscal cyst. Mild narrowing of the spinal canal. Impingement of the traversing right L4 nerve root. Mild narrowing of the bilateral neural foramina 4. At L4-5, mild narrowing of the spinal canal and bilateral neural foramina 5. At L5-S1, mild right and moderate left neural foraminal narrowing.? 03/19/2025, hospital day 2: Still has a sense of weakness of right lower extremity. Tolerating increase activity somewhat with support and assist. Working with PT and OT. Exam Narrative: Exam Narrative: Appears comfortable no acute distress when at rest. Alert and oriented x4. From the, articulate cooperative. Lungs are clear to auscultation. Heart tones with regular rhythm. Abdomen with active bowel sounds, soft, nontender. Extremities without edema. Const: Vital Signs, click to edit/add: Vital Signs - 24 hr 03/18/25 15:57 03/18/25 16:55 03/18/25 19:45 Temperature 97.0 F L 99.4 F 98.5 F Pulse Rate [Left P ulse Oximeter] 78 Pulse Rate [Pulse Oximeter] 68 73 Respiratory Rate 18 16 16 Blood Pressure [Le ft Arm] 143/73 H 133/77 Blood Pressure [Ri ght Upper Arm] 133/70 Pulse Oximetry 97 96 [facility] Air 03/19/25 01:15 03/19/25 07:00 03/19/25 08:15 Temperature 98.4 F 99.1 F Pulse Rate [Left P ulse Oximeter] Pulse Rate [Pulse Oximeter] 70 66 66 Respiratory Rate 16 16 16 Blood Pressure [Le ft Arm] 101/77 111/74 Blood Pressure [Ri ght Upper Arm] Pulse Oximetry 97 96 [facility] Air 03/19/25 11:00 03/19/25 14:57 03/19/25 14:58 Temperature 97.7 F Pulse Rate [Left P ulse Oximeter] Pulse Rate [Pulse Oximeter] 77 77 65 Respiratory Rate 16 16 16 Blood Pressure [Le ft Arm] 108/63 117/65 Blood Pressure [Ri ght Upper Arm] Pulse Oximetry 96 94 Oxygen Delivery Me thod Room Air Room Air Labs Labs: Laboratory Results - last 24 hr 03/19/25 06:12 WBC 7.02 RBC 5.31 Hgb 16.0 Hct 47.6 MCV 90 MCH 30 MCHC 34 RDW Coeff of Jason 13.5 Plt Count 231 Neut % (Auto) 63.6 Lymph % (Auto) 17.1 L [place] % (Auto) 15.2 H Eos % (Auto) 3.1 Baso % (Auto) 0.7 Neut # (Auto) 4.46 Lymph # (Auto) 1.20 [place]ney # (Auto) 1.10 H Eos # (Auto) 0.22 Baso # (Auto) 0.05 Abs Immat Gran (auto) 0.02 Imm/Tot Granulo (auto) 0.3 VBG pH 7.430 VBG pCO2 46 VBG pO2 36.9 VBG HCO3 30 H Sodium 140 Potassium 3.8 Chloride 103 Carbon Dioxide 29 Anion Gap 8 BUN 30 Creatinine 1.0 Estimated Creat Clear 61.75 Estimated GFR 78 Glucose 90 Calcium 9.0 Total Bilirubin 0.8 AST 46 H ALT 25 Alkaline Phosphatase 96 C-Reactive Protein < 0.5 L Total Protein 6.9 Albumin 4.0
--- NOTE | 2025-03-19 18:17 | PC.NURSE ---
Pt continues to be very weak in BLE. Requiring assist of two with christian steady and still briana at the knee if standing for too long. VSS. Denies pain. Pt was given PRN miralax, bisacodyl suppository and senna; pt had a small bowel movement following medications. Pt has had approximately 3000cc oral intake today; pt denied the urge to urinate entire shift, pt was bladder scanned intermittently throughout shift with the highest measure being 215ml at 1700. This was discussed with the provider, provider recommended continuing to monitor pt with bladder scanner and if he is greater than 300ml and still unable to void on own, place a arizmendi catheter.
[2025-03-19] MEDS: ENOXAPARIN 40 MG/0.4 ML INJ SUBCUT (20:44)
[2025-03-20 03:00] VITALS: RESP 16
--- NOTE | 2025-03-20 06:17 | PC.NURSE ---
Pt alert oriented and vitally stable. Pt 2a with christian steady, tolerated okay. Pt stated increased weakness and frequency in legs giving out. Abdomen tender to palpation and states pressure. Bladder scanned around 2100, 600 cc in bladder, (Charis) notified and arizmendi catheter placed (550 out immediately). Around 0600 catheter emptied, urine reddened (blood tinged), arizmendi patent and draining, appears to be free of clots. (Jeanette) notified. Pt denies pain and nausea. Some incontinence with BM, though had small BM. Pt in bed, appears to be resting, call light within reach.
[2025-03-20 07:00] VITALS: BP 106/67; PULSE 75; RESP 16; O2SAT 97
[2025-03-20] MEDS: GABAPENTIN 100 MG CAPSULE PO ×2 (09:04→14:52)
[2025-03-20] MEDS: ATORVASTATIN CALCIUM 10 MG TABLET 20 MG PO (09:04)
[2025-03-20] MEDS: SODIUM CHLORIDE 0.9 % (FLUSH) 10 ML SYRINGE 5 ML IVF (09:06)
[2025-03-20 09:17] LABS: Hemoglobin* 15.8 gm/dL (13.5-17.5); Mean Corpuscular HGB Conc 34 gm/dL (32-36); Mean Corpuscular Hemoglobin 30 pg (26-34); Mean Corpuscular Volume 89 fL (80-100); Platelet Count* 219 K/uL (140-440); Red Blood Count 5.27 m/uL (4.30-5.90); White Blood Count* 13.92 K/uL (4.50-11.00)
[2025-03-20 09:21] LABS: Slide Review Reflex No
[2025-03-20 11:00] VITALS: BP 89/58; PULSE 83; RESP 16; TEMP 36.7; O2SAT 94
[2025-03-20 11:16] VITALS: BP 104/59
[2025-03-20 12:23] LABS: Appearance Urine Turbid (Clear); Bilirubin Urine 1+ (Negative); Blood Urine 3+ (Negative); Color Urine Red (Yellow); Glucose Urine Negative (Negative); Ketones Urine Negative (Negative); Leukocyte Esterase Urine Negative (Negative); Nitrite Urine Negative (Negative); Protein Urine 3+ (Negative); Specific Gravity Urine 1.025 (1.000-1.030); Urobilinogen Urine 0.2 (0.2-1.0)
[2025-03-20 12:36] LABS: RBC Urine >100 (0-2); Squamous Epithelial Cell Urine Moderate (None-Few); WBC Urine 0-2 (0-5)
[2025-03-20 14:54] VITALS: BP 116/63; PULSE 78; RESP 18; O2SAT 97
--- NOTE | 2025-03-20 16:19 | P.DS_ITS ---
DS: Providers Provider Date Seen: 03/20/25 Date of admission: 03/18/25 16:51 Primary care physician: Modesta Moon DO Admitting Clinician: Christina Britt MD Consults: 03/18/25 17:26 Consult to Occupational Therapy [CONS] Routine Comment: Reason(s) for OT Consult:: Evaluate and Treat Any Restrictions?:: No Restrictions Consult to Physical Therapy [CONS] Routine Comment: Reason(s) for PT Consult:: Evaluate and Treat Any Restrictions?:: No Restrictions Consult to [employer] [CONS] Routine Comment: Reason for Consult:: Social Service Consult Attending Physician on discharge: Pasha Reid MD Date of Discharge: 03/20/25 DS: Diagnosis Discharge Diagnosis (1) Bilateral leg weakness: Status: Acute Problem details: 03/20/2025: R > L evolving since 2024, over the past 2 weeks (2) Right leg weakness: Status: Acute Problem details: -related to L4 nerve root impingement -as above (3) Intervertebral disc extrusion: Status: Acute Problem details: 03/18/2025: -L3-4 level with parameniscal cyst; impinges upon the right L4 nerve root. -scheduled NSAIDs, gabapentin. Inpatient PT and OT team. -early coordination for JUDY and possible surgical intervention. 03/19/2025: -continue work with PT and OT. Add scheduled acetaminophen. (4) Acute urinary retention: Status: Acute Problem details: - new with current hospitalization (5) Traumatic hematuria: Status: Acute Problem details: - s/p Lawrence catheter placement 03/19/2025 for acute urinary retention (6) Constipation: Status: Acute Problem details: -severe, ct confirmed -manual disempaction by patient for last two weeks. needs robust bowel regimen. 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 Had chemotherapy and radiation with success. Margareth Hernández MD - ENT currently sees (9) Restless legs: Status: Acute (10) MCI (mild cognitive impairment): Status: Acute (11) Restrictions of the diet: Status: Acute Problem details: -liquid only. high calorie protein supplementation that is provided by ENT/PCP. DS: Summary Hospital Course Hospital Course: 03/18/2025, admission history of present illness: ?74 y/o with hx of tongue cancer, smoking and hyperlipidemia presents for the 2nd time in 3-4 days to our ED with weakness; unable to walk well and feeling off balance. He had abdominal discomfort as well during the first visit. The ED workup was unrevealing - other than constipation and some stable appearing he rnias. Just before the first ED visit he had been moving some boxes and he felt wiped out. no falls or injury. Just noted weakness in the legs, belly pain. The abdominal discomfort is improved but his R>L leg weakness which is described as a sense of buckling at any time is worse. No evidence of CVA; no elevated blood pressures. no blood in the stool. labs are not drawn today but are reviewed from the [facility] shows elevated hgb (smoker) with a normal WBC count and plt count. some increase in his monocyte percentage as well. Normal chemistries noted. Umbilical ER COURSE: knee films, lumbar MRI. no meds, no labs. ?INVESTIGATIONS: LABS/MICRO/ECG/IMAGING ?Right Knee Xray: Impression: No acute displaced fracture or malalignment. Mild degenerative changes of the knee. Trace knee joint effusion. ?Lumbar MR IMPRESSION: 1. Normal alignment. No fractures 2. Lumbar spondylosis 3. At L3-4, disc degeneration. Diffuse disc bulge with a right paracentral disc extrusion and parameniscal cyst. Mild narrowing of the spinal canal. Impingement of the traversing right L4 nerve root. Mild narrowing of the bilateral neural foramina 4. At L4-5, mild narrowing of the spinal canal and bilateral neural foramina 5. At L5-S1, mild right and moderate left neural foraminal narrowing.? 03/19/2025, hospital day 2: Still has a sense of weakness of right lower extremity. Tolerating increase activity somewhat with support and assist. Working with PT and OT. 03/20/2025, hospital day 3: Overnight patient developed bilateral leg weakness, right greater than left. Has urinary retention. Not responsive to straight cath efforts with continuing urinary retention, therefore urinary Lawrence catheter placed. Traumatic placement with hematuria noted. Having ongoing constipation for developing over the last 2 weeks as well. Concern is that patient has an evolving myelopathy not noted on MR scan that we obtained initially. I called and discussed the case with Dr. Macario, neurologist, who concurred with the concerned and recommended transfer if at all possible. I was able to speak with hospitalist, Dr. Le, at [facility] who accepted the patient will continue to facilitate efforts for the patient to have additional diagnostic and interventional efforts as warranted. Patient is agreeable to these steps and measures. Status at Discharge Functional status at discharge: bed bound Overall status at discharge: other Time Spent with Patient Time attestation: Total time spent providing and/or coordinating discharge services: Time spent: Greater than 30 minutes Exam Narrative: Exam Narrative: Bilateral lower extremity weakness. Unable to bear weight. Absent deep tendon reflexes bilateral lower extremities. Positive Babinski sign bilateral lower extremities. Full strength in abilities in upper extremities. Lawrence catheter in with blood-tinged urine consistent with traumatic placement of Lawrence catheter. No clots. Ordered urinalysis and urine culture. Const: Vital Signs, click to edit/add: Vital Signs - 24 hr 03/19/25 19:00 03/19/25 23:00 03/19/25 23:00 Temperature 98.4 F 98.0 F Pulse Rate [Pulse Oximeter] 79 78 78 Respiratory Rate 16 18 18 Blood Pressure [Le ft Arm] 138/76 121/68 Pulse Oximetry 93 94 Oxygen Delivery Me thod Room Air Room Air 03/20/25 03:00 03/20/25 07:00 03/20/25 11:00 Temperature 98.0 F Pulse Rate [Pulse Oximeter] 75 83 Respiratory Rate 16 16 16 Blood Pressure [Le ft Arm] 106/67 89/58 L Pulse Oximetry 97 94 Oxygen Delivery Me thod Room Air Room Air 03/20/25 11:16 03/20/25 14:54 Temperature Pulse Rate [Pulse Oximeter] 78 Respiratory Rate 18 Blood Pressure [Le ft Arm] 104/59 L 116/63 Pulse Oximetry 97 Oxygen Delivery Tn thod Room Air DS: Data Data Completed and Pending Labs on day of discharge: Labs from last 24 hours 03/20/25 03/20/25 11:50 09:01 WBC 13.92 H RBC 5.27 Hgb 15.8 Hct 47.0 MCV 89 MCH 30 MCHC 34 Plt Count 219 Urine Color Red A Urine Appearance Turbid A Urine pH 6.0 Ur Specific [place] 1.025 Urine Protein 3+ A Urine Glucose (UA) Negative Urine Ketones Negative Urine Blood 3+ A Urine Nitrite Negative Urine Bilirubin 1+ A Urine Urobilinogen 0.2 Ur Leukocyte Esterase Negative Urine RBC >100 A Urine WBC 0-2 Ur Squamous Epith Cells Moderate A Urine Bacteria None Preliminary micro results at discharge 03/20/25 11:50 Urine Culture - Preliminary Urine Lawrence Port Culture in Progress Imaging MRI of lumbosacral spine: Radiologist's impression: FINDINGS: Normal vertebral body alignment. No fractures. No vertebral body loss of height. No spondylolisthesis. No evidence injury. No suspicious osseous lesions. Vertebral body hemangioma T12. Normal conus terminates at L1. T12-L1 L1-2: No spinal canal neural foraminal narrowing. L2-3: Disc degeneration posted disc bulge. No spinal canal or neural foraminal narrowing. L3-4: Disc degeneration and loss disc height. Mild Modic type 1 endplate changes. Diffuse disc bulge. Superimposed right paracentral disc extrusion and peridiscal cyst measuring approximately 7 mm in diameter with 7 mm of caudal migration (series 7, image 24; series 2, image 7). Mild narrowing of spinal canal. The extruded disc impinges upon the traversing right L4 nerve root. Mild narrowing of bilateral foramina. Mild facet arthropathy. L4-5: Disc degeneration and loss disc height. Mild Modic type 1 endplate changes. Posterior disc bulge. Mild narrowing of spinal canal. Mild narrowing of the bilateral foramina. Mild facet arthropathy. L5-S1: Disc degeneration posted disc bulge. No narrowing of splenic canal. No impingement of the traversing S1 nerve roots. Mild right and moderate left neural foraminal narrowing. Degenerative changes of the SI joints. Normal paraspinal soft tissues. IMPRESSION: 1. Normal alignment. No fractures 2. Lumbar spondylosis 3. At L3-4, disc degeneration. Diffuse disc bulge with a right paracentral disc extrusion and parameniscal cyst. Mild narrowing of the spinal canal. Impingement of the traversing right L4 nerve root. Mild narrowing of the bilateral neural foramina 4. At L4-5, mild narrowing of the spinal canal and bilateral neural foramina 5. At L5-S1, mild right and moderate left neural foraminal narrowing. Discharge Plan Discharge Disposition: Xfer Acute Care Hospital Discharge Location: [facility] Date of Admission: 03/18/25 16:51 Attending Provider on Discharge: Pasha Reid Primary Care Provider: Modesta Moon Condition: Stable Discharge Orders: Transfer of Care to Other Hospital (ORDER); Ordered 03/20/25 Ordered By: Pasha Reid Additional Instructions: Spoke with Dr. Macario and Mimi at [facility], who accept patient in transfer for additional diagnostic and interventional considerations. Oxygen: No Urinary Catheter: Yes Services not available here: Neurology, Spine Service, Neurosurgery, Physiatry
[2025-03-20] MEDS: SENNOSIDES/DOCUSATE TABLET 1 TAB PO (17:17)
--- NOTE | 2025-03-20 19:14 | PC.NURSE ---
The patient transferred this evening tt [facility] via non emergent EMS for worsening BLE weakness. No reports of pain, arizmendi is in place with continued hematuria. The patient had 2 BMs today. Full liquid diet which is the patients normal due to tongue cancer hx. Nurse to nurse was given prior to transfer. No IV upon DX. All belongings were sent with the patient upon transfer. More GOFF BSN
== END 2025-03-20 19:07 | disposition short-term general hospital (02) ==
LOC: ED 15:32 → MEDSURG 16:53
PROVIDERS: Internal Medicine; Admitting Provider Family Medicine; Emergency Provider Internal Medicine; PCP Family Medicine; Visit Provider Family Medicine
DX: R29.898 Other symptoms and signs involving the musculoskeletal system (principal); M51.26 Other intervertebral disc displacement, lumbar region; K59.00 Constipation, unspecified; K46.9 Unspecified abdominal hernia without obstruction or gangrene; R71.8 Other abnormality of red blood cells; M54.16 Radiculopathy, lumbar region; R33.9 Retention of urine, unspecified; R31.9 Hematuria, unspecified; G31.84 Mild cognitive impairment of uncertain or unknown etiology; G25.81 Restless legs syndrome; E78.5 Hyperlipidemia, unspecified; F17.200 Nicotine dependence, unspecified, uncomplicated; Z71.3 Dietary counseling and surveillance; Z85.818 Personal history of malignant neoplasm of other sites of lip, oral cavity, and pharynx
CPT/HCPCS: 36415; 51701; 51702; 51798; 72148; 73562; 80053; 81001; 82803; 85025; 85027; 86140; 87086; 96372; 97110; 97162; 97166; 97530; 97535; 99283; 99285; A9270; G0378; J1650

== ENCOUNTER 2025-03-20 19:03 | Outpatient (CLI) | payer MEDICARE, SELFPAY | END 2025-03-20 19:04 | disposition home or self-care (01) | LOC: AMB 03-21 14:24 | PROVIDERS: PCP Family Medicine; Visit Provider Family Medicine | DX: R29.898 Other symptoms and signs involving the musculoskeletal system (principal); R33.8 Other retention of urine; R31.9 Hematuria, unspecified | CPT/HCPCS: A0425; A0429 ==